=== PATIENT | male | born 1955 | race American Indian/Alaskan Native ===

== ENCOUNTER 2018-08-16 19:42 | Inpatient (IN) | payer OTHER ==
--- NOTE | 2018-08-16 20:07 | Emergency Department Report ---
Blank Doc - Documentation Documentation: This is a 62-year-old male that presents with cough and SOB. HX of COPD and C HF. Denies any CP. Also has some generalized weakness. This initial assessment/diagnostic orders/clinical plan/treatment(s) is/are subject to change based on patient's health status, clinical progression and re- assessment by fellow clinical providers in the ED. Further treatment and workup at subsequent clinical providers discretion. Patient/guardians urged not to elope from the ED as their condition may be serious if not clinically assessed and managed. Initial orders include: 1- Patient sent to MAIN ED for further evaluation and treatment 2- labs 3- EKG 4- CXR
[2018-08-16 20:26] LABS: Basophils % (Auto) 0.9 % (0.0-1.8); Eosinophils # (Auto) 0.1 K/mm3 (0.0-0.4); Eosinophils % (Auto) 1.5 % (0.0-4.3); Hematocrit 34.7 % (35.5-45.6); Hemoglobin 11.3 gm/dl (11.8-15.2); Lymphocytes # (Auto) 1.2 K/mm3 (1.2-5.4); Lymphocytes % (Auto) 31.5 % (13.4-35.0); Mean Corpuscular HGB Conc 32 % (32-34); Mean Corpuscular Volume 78 fl (84-94); Monocytes # (Auto) 0.4 K/mm3 (0.0-0.8); Monocytes % (Auto) 9.4 % (0.0-7.3); Platelet Count 254 K/mm3 (140-440); Red Blood Count 4.45 M/mm3 (3.65-5.03)
[2018-08-16 20:30] LABS: Red Cell Distribution Width 23.5 % (13.2-15.2)
[2018-08-16 20:44] LABS: BUN/Creatinine Ratio 12; Blood Urea Nitrogen 23 mg/dL (9-20); Calcium 8.9 mg/dL (8.4-10.2); Hemolysis Index 0; INR 1.06 (0.87-1.13)
[2018-08-16 20:45] LABS: Partial Thromboplastin Time 27.1 Sec. (24.2-36.6)
--- NOTE | 2018-08-16 22:04 | XRay Report ---
PROCEDURE: XR CHEST ROUTINE 2V TECHNIQUE: PA and lateral chest radiographs were obtained. HISTORY: Dyspnea COMPARISONS: None. FINDINGS: Heart: Normal. Mediastinum/Vessels: Normal. Lungs/Pleural space: The lungs are well expanded. There are infiltrates at the left lung base. There are small bilateral pleural effusions. There is no pneumothorax.. Bony thorax: No acute osseous abnormality. IMPRESSION: The heart size is normal.. The lungs are well expanded. There are infiltrates at the lef t lung base. There are small bilateral pleural effusions. There is no pneumothorax.. This document is electronically signed by Faustino Can MD., Aug 16 2018 10:02:39 PM ET
--- NOTE | 2018-08-16 22:27 | Emergency Department Report ---
ED Shortness of Breath HPI - General Chief Complaint: Dyspnea/Respdistress Stated Complaint: SHORTNESS OF BREATH/COUGH Time Seen by Provider: 08/16/18 20:05 Source: patient, family Mode of arrival: Ambulatory Limitations: No Limitations - History of Present Illness Initial Comments: pt is a 62-year-old male that presents emergency room with complaints of chest pain, shortness of breath and cough 3 days. Patient states he has not seen his primary care. Patient states he has a past medical history of COPD, CHF, CAD and hypertension. Patient states that his symptoms are worsening. Patient states his shortness of breath is worse with exertion and better with rest. Patient states his chest pain is a 4 out of 10 and it is better with rest and worse with exertion. Patient states the chest pain is in the center of his chest and is nonradiating. MD Complaint: shortness of breath, cough, chest pain -: days(s) (3 days) Severity: moderate Pain Scale: 4 Quality: dull Consistency: intermittent Improves With: rest Worsens With: exertion Known History Of: COPD, congestive heart failure Associated Symptoms: chest pain, pain with inspiration, cough Treatments Prior to Arrival: none - Related Data Allergies Allergy/AdvReac Type Severity Reaction Status Date / Time No Known Allergies Allergy Verified 08/17/18 01:16 ED Review of Systems ROS: Stated complaint: SHORTNESS OF BREATH/COUGH Other details as noted in HPI Constitutional: denies: chills, fever Eyes: denies: eye pain, eye discharge, vision change ENT: denies: ear pain, throat pain Respiratory: cough, shortness of breath, SOB with exertion, SOB at rest. denies: wheezing Cardiovascular: chest pain. denies: palpitations Endocrine: no symptoms reported Gastrointestinal: denies: abdominal pain, nausea, diarrhea Genitourinary: denies: urgency, dysuria Musculoskeletal: denies: back pain, joint swelling, arthralgia Skin: denies: rash, lesions Neurological: denies: headache, weakness, paresthesias Psychiatric: denies: anxiety, depression Hematological/Lymphatic: denies: easy bleeding, easy bruising ED Past Medical Hx - Past Medical History Previous Medical History?: Yes Hx Hypertension: Yes Hx Heart Attack/AMI: Yes Hx Congestive Heart Failure: Yes Hx COPD: Yes Additional medical history: CAD - Surgical History Past Surgical History?: No - Family History Family history: no significant - Social History Smoking Status: Former Smoker Substance Use Type: None ED Physical Exam - General Limitations: No Limitations General appearance: alert, in no apparent distress - Head Head exam: Present: atraumatic, normocephalic - Eye Eye exam: Present: normal appearance - ENT ENT exam: Present: mucous membranes moist - Neck Neck exam: Present: normal inspection - Respiratory Respiratory exam: Present: normal lung sounds bilaterally. Absent: respiratory distress - Cardiovascular Cardiovascular Exam: Present: regular rate, normal rhythm. Absent: systolic murmur, diastolic murmur, rubs, gallop - GI/Abdominal GI/Abdominal exam: Present: soft, normal bowel sounds - Rectal Rectal exam: Present: deferred - Extremities Exam Extremities exam: Present: normal inspection - Back Exam Back exam: Present: normal inspection - Neurological Exam Neurological exam: Present: alert, oriented X3 - Psychiatric Psychiatric exam: Present: normal affect, normal mood - Skin Skin exam: Present: warm, dry, intact, normal color. Absent: rash ED Course Vital Signs 08/16/18 08/16/18 08/17/18 19:47 22:46 01:51 Temperature 98.2 F Pulse Rate 87 78 87 Respiratory 18 22 15 Rate Blood Pressure 172/109 Blood Pressure 168/96 179/109 [Right] O2 Sat by Pulse 99 96 97 Oximetry 08/17/18 02:25 Temperature Pulse Rate 86 Respiratory Rate Blood Pressure 176/109 Blood Pressure [Right] O2 Sat by Pulse Oximetry - Reevaluation(s) Reevaluation #1: Discussed all results with patient. Patient agrees with plan of care and admission. Patient was admitted to the hospitalist service. 08/16/18 23:23 Family bedside and discussed plan of care of family. Family agrees with plan of care and admission. 08/17/18 0:1:30 - Consultations Consultation #1: Hospitalist consulted for admission. Hospitalist to admit patient. Hospitalist to assume care patient. Dr Simmons to see patient 08/16/18 23:23 ED Medical Decision Making - Lab Data Result diagrams: 08/16/18 20:12 08/16/18 20:12 - EKG Data -: EKG Interpreted by Md EKG shows normal: sinus rhythm, axis, intervals, QRS complexes, ST-T waves Rate: normal - EKG Data Interpretation: LVH - Radiology Data Radiology results: report reviewed, image reviewed PROCEDURE: XR CHEST ROUTINE 2V TECHNIQUE: PA and lateral chest radiographs were obtained. HISTORY: Dyspnea COMPARISONS: None. FINDINGS: Heart: Normal. Mediastinum/Vessels: Normal. Lungs/Pleural space: The lungs are well expanded. There are infiltrates at the left lung base. There are small bilateral pleural effusions. There is no pneumothorax.. Bony thorax: No acute osseous abnormality. IMPRESSION: The heart size is normal.. The lungs are well expanded. There are infiltrates at the left lung base. There are small bilateral pleural effusions. There is no pneumothorax.. - Medical Decision Making Patient is a 62-year-old mellitus or sore chest pain, shortness of breath and dyspnea on exertion and cough. Patient found a CHF exacerbation and IV Lasix. Chest x-ray shows infiltrates. Labs unremarkable except for elevated BNP. Troponin negative. EKG shows LVH and no acute changes. - Differential Diagnosis ACS. Chest pain. Shortness of breath. WEST. CHF Critical Care Time: Yes Critical care attestation.: If time is entered above; I have spent that time in minutes in the direct care of this critically ill patient, excluding procedure time. Critical Care Time: 45 minutes ED Disposition Clinical Impression: SOB (shortness of breath), WEST (dyspnea on exertion), Cough, Renal insufficiency CHF exacerbation Qualifiers: Heart failure type: unspecified Qualified Code(s): I50.9 - Heart failure, unspecified Chest pain Qualifiers: Chest pain type: unspecified Qualified Code(s): R07.9 - Chest pain, unspecified Disposition: 09 OP ADMIT IP TO THIS HOSP Is pt being admited?: Yes Does the pt Need Aspirin: No Condition: Critical Instructions: Chest Pain (ED) Referrals: AUBRIE YANG MD [Primary Care Provider] - 3-5 Days Time of Disposition: 23:24
[2018-08-16] MEDS ORDERED: LASIX IV ONE (23:24)
[2018-08-17] MEDS ORDERED: ZOFRAN IV PRN (01:11)
[2018-08-17] MEDS ORDERED: SODIUM CHLORIDE FLUSH SYRINGE 10 ML IV PRN (01:11)
[2018-08-17] MEDS ORDERED: TYLENOL PO PRN (01:11)
[2018-08-17] MEDS ORDERED: ZITHROMAX 500 MG in NACL 0.9% 250ML 250 ML IV SCH (01:15)
[2018-08-17] MEDS ORDERED: APRESOLINE PO SCH (01:18)
[2018-08-17] MEDS ORDERED: APRESOLINE IV PRN (01:19)
[2018-08-17] MEDS ORDERED: LASIX ONE (01:32)
[2018-08-17] MEDS: COREG PO SCH ×3 (02:25→21:14)
[2018-08-17] MEDS: NORVASC PO SCH ×2 (02:25→09:25)
[2018-08-17] MEDS: ROCEPHIN/NS 2 GM/100 ML 2 GM/100 ML BAG IV SCH ×2 (02:25→21:13)
[2018-08-17 02:40] LABS: Bilirubin,Urine NEG (Negative); Blood,Urine SM (Negative); Color,Urine Yellow (Yellow); Mucus,Urine FEW /HPF; Urobilinogen,Urine < 2.0 mg/dL (<2.0)
[2018-08-17] MEDS ORDERED: ZOFRAN IV ONE (03:14)
[2018-08-17] MEDS ORDERED: PROVENTIL IH PRN (04:14)
--- NOTE | 2018-08-17 04:17 | History and Physical Report ---
History of Present Illness Date of examination: 08/17/18 Date of admission: 08/17/18 01:11 Chief complaint: Shortness of breath History of present illness: Patient is a 62 year old -[place] male with history of COPD and CHF who presented to the ED on account of 1 week history of shortness of breath on mild exertion. He has associated dry cough, pleuritic chest pain, chills without fever, nausea, vomiting and generalized weakness. He denies palpitations, diaphoresis, sore throat, runny nose, leg swelling, orthopnea or PND. No headaches, lightheadedness, syncope or loss of consciousness. No abdominal pain, bleeding from any orifice, constipation, diarrhea, dysuria or frequency. Of note, patient admits to being compliant with his medications. Past History Past Medical History: atrial fib, COPD, heart failure, hypertension Past Surgical History: Other (ablation) Social history: smoking (patient smokes cigarettes for 50 years but quit about a year ago. He abused alcohol for 50 years but quit a year ago. He denies illicit drug use) Family history: other (reviewed and noncontributory) Medications and Allergies Allergies Allergy/AdvReac Type Severity Reaction Status Date / Time No Known Allergies Allergy Verified 08/17/18 01:16 Home Medications Medication Instructions Recorded Confirmed Last Taken Type Amiodarone 200 mg PO DAILY 08/17/18 08/17/18 Unknown History Carvedilol 3.125 mg PO BID 08/17/18 08/17/18 Unknown History Eliquis 2.5 mg PO BID 08/17/18 08/17/18 Unknown History ISOSORBIDE MONOnitrate 120 mg PO DAILY 08/17/18 08/17/18 Unknown History hydrALAZINE 50 mg PO TID 08/17/18 08/17/18 Unknown History Active Meds: Active Medications Acetaminophen (Tylenol) 650 mg PO Q4H PRN PRN Reason: Pain MILD(1-3)/Fever >100.5/SHAH Acetaminophen/Hydrocodone Bitart ([place] 5/325) 1 each PO Q6H PRN PRN Reason: Pain, Moderate (4-6) Amlodipine Besylate (Norvasc) 10 mg PO QDAY [facility] Last Admin: 08/17/18 02:25 Dose: 10 mg Documented by: Carvedilol (Coreg) 12.5 mg PO BID [facility] Last Admin: 08/17/18 02:25 Dose: 12.5 mg Documented by: Docusate Sodium (Colace) 100 mg PO BID [facility] Furosemide (Lasix) 40 mg IV 0600,1800 HEATHER Hydralazine HCl (Apresoline) 75 mg PO TID [facility] Last Admin: 08/17/18 01:34 Dose: 75 mg Documented by: Hydralazine HCl (Apresoline) 20 mg IV Q4HR PRN PRN Reason: Blood Pressure Ceftriaxone Sodium (Rocephin/Ns 2 Gm/100 Ml) 2 gm in 100 mls @ 200 mls/hr IV Q24HR@2200 HEATHER; Protocol Last Admin: 08/17/18 02:25 Dose: 200 mls/hr Documented by: Azithromycin 500 mg/ Sodium (Chloride) 250 mls @ 250 mls/hr IV Q24HR HEATHER Ondansetron HCl (Zofran) 4 mg IV Q8H PRN PRN Reason: Nausea And Vomiting Sodium Chloride (Sodium Chloride Flush Syringe 10 Ml) 10 ml IV BID [facility] Sodium Chloride (Sodium Chloride Flush Syringe 10 Ml) 10 ml IV PRN PRN PRN Reason: LINE FLUSH Review of Systems All systems: negative (except as documented in the HPI, all other systems were reviewed and negative) Exam - Constitutional Vitals: Temp Pulse Resp BP Pulse Ox 98.2 F 70 24 113/66 97 08/16/18 19:47 08/17/18 03:49 08/17/18 03:49 08/17/18 03:49 08/17/18 03:49 General appearance: Present: no acute distress, well-nourished - EENT Eyes: Present: PERRL, EOM intact ENT: hearing intact, clear oral mucosa - Neck Neck: Present: supple, normal ROM - Respiratory Respiratory effort: normal Respiratory: bilateral: rales (bibasilar crackles) - Cardiovascular Rhythm: regular Heart Sounds: Present: S1 & S2 - Extremities Extremities: No edema Peripheral Pulses: within normal limits - Abdominal General gastrointestinal: Present: soft, non-tender, non-distended, normal bowel sounds Male genitourinary: Present: deferred - Integumentary Integumentary: Present: clear, warm, dry - Musculoskeletal Musculoskeletal: gait normal, strength equal bilaterally - Psychiatric Psychiatric: appropriate mood/affect, intact judgment & insight - Neurologic Neurologic: CNII-XII intact, moves all extremities Results - Labs CBC & Chem 7: 08/16/18 20:12 08/16/18 20:12 Labs: Laboratory Last Values WBC 3.9 K/mm3 (4.5-11.0) L 08/16/18 20:12 RBC 4.45 M/mm3 (3.65-5.03) 08/16/18 20:12 Hgb 11.3 gm/dl (11.8-15.2) L 08/16/18 20:12 Hct 34.7 % (35.5-45.6) L 08/16/18 20:12 MCV 78 fl (84-94) L 08/16/18 20:12 MCH 25 pg (28-32) L 08/16/18 20:12 MCHC 32 % (32-34) 08/16/18 20:12 RDW 23.5 % (13.2-15.2) H 08/16/18 20:12 Plt Count 254 K/mm3 (140-440) 08/16/18 20:12 Lymph % (Auto) 31.5 % (13.4-35.0) 08/16/18 20:12 [place] % (Auto) 9.4 % (0.0-7.3) H 08/16/18 20:12 Eos % (Auto) 1.5 % (0.0-4.3) 08/16/18 20:12 Baso % (Auto) 0.9 % (0.0-1.8) 08/16/18 20:12 Lymph # 1.2 K/mm3 (1.2-5.4) 08/16/18 20:12 [place] # 0.4 K/mm3 (0.0-0.8) 08/16/18 20:12 Eos # 0.1 K/mm3 (0.0-0.4) 08/16/18 20:12 Baso # 0.0 K/mm3 (0.0-0.1) 08/16/18 20:12 Seg Neutrophils % 56.7 % (40.0-70.0) 08/16/18 20:12 Seg Neutrophils # 2.2 K/mm3 (1.8-7.7) 08/16/18 20:12 PT 14.5 Sec. (12.2-14.9) 08/16/18 20:12 INR 1.06 (0.87-1.13) 08/16/18 20:12 APTT 27.1 Sec. (24.2-36.6) 08/16/18 20:12 Sodium 138 mmol/L (137-145) 08/16/18 20:12 Potassium 4.3 mmol/L (3.6-5.0) 08/16/18 20:12 Chloride 104.5 mmol/L (98-107) 08/16/18 20:12 Carbon Dioxide 24 mmol/L (22-30) 08/16/18 20:12 Anion Gap 14 mmol/L 08/16/18 20:12 BUN 23 mg/dL (9-20) H 08/16/18 20:12 Creatinine 1.9 mg/dL (0.8-1.5) H 08/16/18 20:12 Estimated GFR 36 ml/min 08/16/18 20:12 BUN/Creatinine Ratio 12 % 08/16/18 20:12 Glucose 100 mg/dL (75-100) 08/16/18 20:12 Calcium 8.9 mg/dL (8.4-10.2) 08/16/18 20:12 Troponin T < 0.010 ng/mL (0.00-0.029) 08/17/18 02:15 NT-Pro-B Natriuret Pep 81289 pg/mL (0-900) H 08/16/18 20:30 Urine Color Yellow (Yellow) 08/17/18 02:32 Urine Turbidity Clear (Clear) 08/17/18 02:32 Urine pH 6.0 (5.0-7.0) 08/17/18 02:32 Ur Specific [place] 1.011 (1.003-1.030) 08/17/18 02:32 Urine Protein 100 mg/dl mg/dL (Negative) 08/17/18 02:32 Urine Glucose (UA) Neg mg/dL (Negative) 08/17/18 02:32 Urine Ketones Neg mg/dL (Negative) 08/17/18 02:32 Urine Blood Sm (Negative) 08/17/18 02:32 Urine Nitrite Neg (Negative) 08/17/18 02:32 Urine Bilirubin Neg (Negative) 08/17/18 02:32 Urine Urobilinogen < 2.0 mg/dL (<2.0) 08/17/18 02:32 Ur Leukocyte Esterase Neg (Negative) 08/17/18 02:32 Urine WBC (Auto) 1.0 /HPF (0.0-6.0) 08/17/18 02:32 Urine RBC (Auto) 2.0 /HPF (0.0-6.0) 08/17/18 02:32 Urine Mucus Few /HPF 08/17/18 02:32 Assessment and Plan Assessment and plan: Acute on chronic CHF exacerbation -EF unknown -On CHF protocol -Echocardiogram to assess EF and valvular function Pneumonia -Chest x-ray showed infiltrates left lower lung base -On IV antibiotics -Blood cultures pending Hypertensive urgency -On antihypertensives, will adjust as needed ARF -Probably cardiorenal -On IV diuretic, will monitor creatinine level History of atrial fibrillation -Status post ablation -Heart rate controlled -We'll continue home medications including anticoagulation History of COPD -No acute exacerbation -On nebulizer breathing treatments DVT prophylaxis with heparin Disposition: For discharge when medically stable Time spent: 38 minutes
[2018-08-17] MEDS: LASIX IV SCH ×3 (05:56→18:31)
[2018-08-17] MEDS: NORCO 5/325 PO PRN ×3 (08:30→18:31)
[2018-08-17] MEDS: COLACE PO SCH ×2 (09:25→21:14)
[2018-08-17] MEDS: SODIUM CHLORIDE FLUSH SYRINGE 10 ML IV SCH ×2 (09:26→21:15)
[2018-08-17] MEDS: ZITHROMAX 500 MG in NACL 0.9% 250ML 250 ML IV SCH (13:39)
--- NOTE | 2018-08-17 14:16 | Progress Note ---
Assessment and Plan Assessment and plan: Patient is a 62 yo man with a history of hypertension, afib on eliquis, chf, copd and tobacco use who presents to [facility] ED with sob. * 2v CXR IMPRESSION: The heart size is normal.. The lungs are well expanded. There are infiltrates at the left lung base. There are small bilateral pleural effusions. There is no pneumothorax.. * 2D ECHO showed severe 4 chamber dilated cardiomyopathy, est EF 20-25%, moder ate concentric LVH, moderate to severe MR, severe TR, mild phtn, RVSP estimated at 28 mmhg, left pleural effusion, no significant pericardial effusion. Acute on chronic CHF exacerbation -EF unknown -On CHF protocol -consult Cardiology Pneumonia, LLL -Chest x-ray showed infiltrates left lower lung base -On IV antibiotics -Blood cultures pending Hypertensive urgency -On antihypertensives, will adjust as needed ARF -Probably cardiorenal -On IV diuretic, will monitor creatinine level History of atrial fibrillation -Status post ablation -Heart rate controlled -We'll continue home medications including anticoagulation History of COPD -No acute exacerbation -On nebulizer breathing treatments DVT prophylaxis with heparin Disposition: continue inpatient car, For discharge when medically stable History Interval history: Patient was seen and examined. Follow-up on current diagnosis of CHF. No Overnight events reported to me. Patient denies any chest pain, nausea/vomiting or severe headaches. Imaging, nursing note, chart, labs and old chart reviewed. Discussed with patient. Hospitalist Physical - Physical exam Narrative exam: Gen: thin frial, chronically disable, NAD, Awake, Alert, Orientated x 3, initially missed year HEENT: NCAT, EOMI, PERRL, OP Clear Neck: supple, no adenopathy, no thyromegaly, no JVD CVS/Heart: RRR, normal S1S2, pulses present bilaterally Chest/Lungs: diminished, Symmetrical chest expansion, good air entry bilaterally GI/Abdomen: soft, NTND, good bowel sounds, no guarding or rebound /Bladder: no suprapubic tenderness, no CVA or paraspinal tenderness Extermity/Skin: no leg edema, no obvious rash MSK: FROM x 4 Neuro: CN 2-12 grossly intact, no new focal deficits Psych: calm - Constitutional Vitals: Temp Pulse Resp BP Pulse Ox 97.9 F 72 18 122/81 100 08/17/18 12:28 08/17/18 12:28 08/17/18 12:28 08/17/18 12:28 08/17/18 12:28 General appearance: Present: no acute distress, well-nourished Results - Labs CBC & Chem 7: 08/16/18 20:12 08/16/18 20:12 Labs: Laboratory Last Values WBC 3.9 K/mm3 (4.5-11.0) L 08/16/18 20:12 RBC 4.45 M/mm3 (3.65-5.03) 08/16/18 20:12 Hgb 11.3 gm/dl (11.8-15.2) L 08/16/18 20:12 Hct 34.7 % (35.5-45.6) L 08/16/18 20:12 MCV 78 fl (84-94) L 08/16/18 20:12 MCH 25 pg (28-32) L 08/16/18 20:12 MCHC 32 % (32-34) 08/16/18 20:12 RDW 23.5 % (13.2-15.2) H 08/16/18 20:12 Plt Count 254 K/mm3 (140-440) 08/16/18 20:12 Lymph % (Auto) 31.5 % (13.4-35.0) 08/16/18 20:12 [place] % (Auto) 9.4 % (0.0-7.3) H 08/16/18 20:12 Eos % (Auto) 1.5 % (0.0-4.3) 08/16/18 20:12 Baso % (Auto) 0.9 % (0.0-1.8) 08/16/18 20:12 Lymph # 1.2 K/mm3 (1.2-5.4) 08/16/18 20:12 [place] # 0.4 K/mm3 (0.0-0.8) 08/16/18 20:12 Eos # 0.1 K/mm3 (0.0-0.4) 08/16/18 20:12 Baso # 0.0 K/mm3 (0.0-0.1) 08/16/18 20:12 Seg Neutrophils % 56.7 % (40.0-70.0) 08/16/18 20:12 Seg Neutrophils # 2.2 K/mm3 (1.8-7.7) 08/16/18 20:12 PT 14.5 Sec. (12.2-14.9) 08/16/18 20:12 INR 1.06 (0.87-1.13) 08/16/18 20:12 APTT 27.1 Sec. (24.2-36.6) 08/16/18 20:12 Sodium 138 mmol/L (137-145) 08/16/18 20:12 Potassium 4.3 mmol/L (3.6-5.0) 08/16/18 20:12 Chloride 104.5 mmol/L (98-107) 08/16/18 20:12 Carbon Dioxide 24 mmol/L (22-30) 08/16/18 20:12 Anion Gap 14 mmol/L 08/16/18 20:12 BUN 23 mg/dL (9-20) H 08/16/18 20:12 Creatinine 1.9 mg/dL (0.8-1.5) H 08/16/18 20:12 Estimated GFR 36 ml/min 08/16/18 20:12 BUN/Creatinine Ratio 12 % 08/16/18 20:12 Glucose 100 mg/dL (75-100) 08/16/18 20:12 Calcium 8.9 mg/dL (8.4-10.2) 08/16/18 20:12 Troponin T < 0.010 ng/mL (0.00-0.029) 08/17/18 04:53 NT-Pro-B Natriuret Pep 80712 pg/mL (0-900) H 08/16/18 20:30 Urine Color Yellow (Yellow) 08/17/18 02:32 Urine Turbidity Clear (Clear) 08/17/18 02:32 Urine pH 6.0 (5.0-7.0) 08/17/18 02:32 Ur Specific [place] 1.011 (1.003-1.030) 08/17/18 02:32 Urine Protein 100 mg/dl mg/dL (Negative) 08/17/18 02:32 Urine Glucose (UA) Neg mg/dL (Negative) 08/17/18 02:32 Urine Ketones Neg mg/dL (Negative) 08/17/18 02:32 Urine Blood Sm (Negative) 08/17/18 02:32 Urine Nitrite Neg (Negative) 08/17/18 02:32 Urine Bilirubin Neg (Negative) 08/17/18 02:32 Urine Urobilinogen < 2.0 mg/dL (<2.0) 08/17/18 02:32 Ur Leukocyte Esterase Neg (Negative) 08/17/18 02:32 Urine WBC (Auto) 1.0 /HPF (0.0-6.0) 08/17/18 02:32 Urine RBC (Auto) 2.0 /HPF (0.0-6.0) 08/17/18 02:32 Urine Mucus Few /HPF 08/17/18 02:32 Active Medications - Current Medications Current Medications: Generic Name Dose Route Start Last Admin Trade Name Freq PRN Reason Stop Dose Admin Acetaminophen 650 mg 08/17/18 01:11 Tylenol PO Q4H PRN Pain MILD(1-3)/Fever >100.5/SHAH Acetaminophen/Hydrocodone Bitart 1 each 08/17/18 01:11 08/17/18 13:35 [place] 5/325 PO 1 each Q6H PRN Administration Pain, Moderate (4-6) Albuterol 2.5 mg 08/17/18 04:14 Proventil IH Q4HRT PRN Shortness Of Breath Amlodipine Besylate 10 mg 08/17/18 01:17 08/17/18 09:25 Norvasc PO 10 mg QDAY HEATHER Administration Carvedilol 12.5 mg 08/17/18 02:00 08/17/18 09:26 Coreg PO 12.5 mg BID HEATHER Administration Docusate Sodium 100 mg 08/17/18 10:00 08/17/18 09:25 Colace PO 100 mg BID HEATHER Administration Furosemide 40 mg 08/17/18 06:00 08/17/18 09:25 Lasix IV 40 mg 0600,1800 HEATHER Administration Hydralazine HCl 20 mg 08/17/18 01:19 Apresoline IV Q4HR PRN Blood Pressure Ceftriaxone Sodium 2 gm in 100 mls @ 200 mls/hr 08/17/18 02:00 08/17/18 02:25 Rocephin/Ns 2 Gm/100 Ml IV 200 mls/hr Q24HR@2200 HEATHER Administration Protocol Azithromycin 500 mg/ Sodium 250 mls @ 250 mls/hr 08/17/18 10:00 08/17/18 13:39 Chloride IV 250 mls/hr Q24HR HEATHER Administration Ondansetron HCl 4 mg 08/17/18 01:11 Zofran IV Q8H PRN Nausea And Vomiting Sodium Chloride 10 ml 08/17/18 10:00 08/17/18 09:26 Sodium Chloride Flush Syringe 10 Ml IV 10 ml BID HEATHER Administration Sodium Chloride 10 ml 08/17/18 01:11 Sodium Chloride Flush Syringe 10 Ml IV PRN PRN LINE FLUSH
[2018-08-18 05:52] LABS: Basophils % (Auto) 0.6 % (0.0-1.8); Eosinophils # (Auto) 0.1 K/mm3 (0.0-0.4); Eosinophils % (Auto) 1.4 % (0.0-4.3); Hematocrit 29.8 % (35.5-45.6); Hemoglobin 9.8 gm/dl (11.8-15.2); Lymphocytes # (Auto) 1.6 K/mm3 (1.2-5.4); Lymphocytes % (Auto) 35.2 % (13.4-35.0); Mean Corpuscular HGB Conc 33 % (32-34); Mean Corpuscular Volume 78 fl (84-94); Monocytes # (Auto) 0.5 K/mm3 (0.0-0.8); Monocytes % (Auto) 9.8 % (0.0-7.3); Platelet Count 223 K/mm3 (140-440); Red Blood Count 3.85 M/mm3 (3.65-5.03)
[2018-08-18] MEDS: LASIX IV SCH (06:00)
[2018-08-18 06:04] LABS: Red Cell Distribution Width 23.3 % (13.2-15.2)
[2018-08-18 06:11] LABS: Alanine Aminotransferase 9 units/L (7-56); Albumin 2.8 g/dL (3.9-5); BUN/Creatinine Ratio 10; Blood Urea Nitrogen 26 mg/dL (9-20); Hemolysis Index 4
[2018-08-18 06:31] LABS: Bilirubin,Direct < 0.2 mg/dL (0-0.2)
--- NOTE | 2018-08-18 09:34 | Consultation ---
History of Present Illness Consult date: 08/18/18 Consult reason: congestive heart failure History of present illness: Patient is a 62 year old male who presented with complaints of shortness of breath, coughs and generalized weakness. A chest x-ray reports mild interstitial edema, left lower lobe infiltrates with bilateral plueral effusions. Initial labs shows acute renal failure, creatinine of 1.9 and an elevated proBNP. Further cardiac evaluation with an echocardiogram revealed severe 4 chamber dilated cardiomyopathy with a decreased left ventricular systolic function 20- 25%. Cardiac consultation was requested for further evaluation. Patient is a poor historian. Records from [facility] shows patient has chronic systolic heart failure. [facility] but has not been done due to non-compliance with cardiac followups. Patient also has a history of typical atrial flutter and has undergone an atrial flutter ablation less than a year ago. Due to history of chronic renal failure he is on low dose eliquis therapy. He had a creatinine of 1.65 on discharge from [facility] 10/2017. Past History Past Medical History: atrial fib, COPD, heart failure, hypertension Past Surgical History: Other (ablation) Social history: smoking (patient smokes cigarettes for 50 years but quit about a year ago. He abused alcohol for 50 years but quit a year ago. He denies illicit drug use) Family history: other (reviewed and noncontributory) Medications and Allergies Allergies Allergy/AdvReac Type Severity Reaction Status Date / Time No Known Allergies Allergy Verified 08/17/18 01:16 Home Medications Medication Instructions Recorded Confirmed Last Taken Type Amiodarone 200 mg PO DAILY 08/17/18 08/17/18 Unknown History Carvedilol 3.125 mg PO BID 08/17/18 08/17/18 Unknown History Eliquis 2.5 mg PO BID 08/17/18 08/17/18 Unknown History ISOSORBIDE MONOnitrate 120 mg PO DAILY 08/17/18 08/17/18 Unknown History hydrALAZINE 50 mg PO TID 08/17/18 08/17/18 Unknown History Active Meds: Active Medications Acetaminophen (Tylenol) 650 mg PO Q4H PRN PRN Reason: Pain MILD(1-3)/Fever >100.5/SHAH Acetaminophen/Hydrocodone Bitart ([place] 5/325) 1 each PO Q6H PRN PRN Reason: Pain, Moderate (4-6) Last Admin: 08/17/18 18:31 Dose: 1 each Documented by: Albuterol (Proventil) 2.5 mg IH Q4HRT PRN PRN Reason: Shortness Of Breath Amlodipine Besylate (Norvasc) 10 mg PO QDAY [facility] Last Admin: 08/17/18 09:25 Dose: 10 mg Documented by: Carvedilol (Coreg) 12.5 mg PO BID [facility] Last Admin: 08/17/18 21:14 Dose: 12.5 mg Documented by: Docusate Sodium (Colace) 100 mg PO BID [facility] Last Admin: 08/17/18 21:14 Dose: 100 mg Documented by: Furosemide (Lasix) 40 mg IV 0600,1800 [facility] Last Admin: 08/18/18 06:00 Dose: 40 mg Documented by: Hydralazine HCl (Apresoline) 20 mg IV Q4HR PRN PRN Reason: Blood Pressure Ceftriaxone Sodium (Rocephin/Ns 2 Gm/100 Ml) 2 gm in 100 mls @ 200 mls/hr IV Q24HR@2200 [facility]; Protocol Last Admin: 08/17/18 21:13 Dose: 200 mls/hr Documented by: Azithromycin 500 mg/ Sodium (Chloride) 250 mls @ 250 mls/hr IV Q24HR [facility] Last Admin: 08/17/18 13:39 Dose: 250 mls/hr Documented by: Ondansetron HCl (Zofran) 4 mg IV Q8H PRN PRN Reason: Nausea And Vomiting Sodium Chloride (Sodium Chloride Flush Syringe 10 Ml) 10 ml IV BID [facility] Last Admin: 08/17/18 21:15 Dose: 10 ml Documented by: Sodium Chloride (Sodium Chloride Flush Syringe 10 Ml) 10 ml IV PRN PRN PRN Reason: LINE FLUSH Physical Examination Vital Signs Temp Pulse Resp BP Pulse Ox 98.2 F 87 18 172/109 99 08/16/18 19:47 08/16/18 19:47 08/16/18 19:47 08/16/18 19:47 08/16/18 19:47 General appearance: no acute distress HEENT: Positive: PERRL Neck: Positive: trachea midline Cardiac: Positive: Reg Rate and Rhythm Lungs: Positive: Decreased Breath Sounds Neuro: Positive: Grossly Intact Extremities: Absent: edema Results 08/18/18 05:13 08/18/18 05:13 Cardiac Enzymes 08/18/18 Range/Units 05:13 AST 14 (5-40) units/L CBC 08/18/18 Range/Units 05:13 WBC 4.7 (4.5-11.0) K/mm3 RBC 3.85 (3.65-5.03) M/mm3 Hgb 9.8 L (11.8-15.2) gm/dl Hct 29.8 L (35.5-45.6) % Plt Count 223 (140-440) K/mm3 Lymph # 1.6 (1.2-5.4) K/mm3 [place] # 0.5 (0.0-0.8) K/mm3 Eos # 0.1 (0.0-0.4) K/mm3 Baso # 0.0 (0.0-0.1) K/mm3 Comprehensive Metabolic Panel 08/18/18 Range/Units 05:13 Sodium 137 (137-145) mmol/L Potassium 4.2 (3.6-5.0) mmol/L Chloride 105.5 (98-107) mmol/L Carbon Dioxide 21 L (22-30) mmol/L BUN 26 H (9-20) mg/dL Creatinine 2.6 H (0.8-1.5) mg/dL Glucose 104 H (75-100) mg/dL Calcium 8.0 L (8.4-10.2) mg/dL Direct Bilirubin < 0.2 (0-0.2) mg/dL Indirect Bilirubin 0.2 mg/dL AST 14 (5-40) units/L ALT 9 (7-56) units/L Alkaline Phosphatase 87 (35-129) units/L Total Protein 6.9 (6.3-8.2) g/dL Albumin 2.8 L (3.9-5) g/dL Assessment and Plan Pneumonia Pleural effusion Chronic systolic heart failure EF 20-25% by echo this admission Hx of Aflutter s/p ablation 10/2017 previously recommended for low dose eliquis therapy Chronic renal failure COPD Recommend: Medical management for chronic systolic heart failure. Nephrology consultation for evaluation and management of renal failure. Otherwise, conservative cardiac management.
[2018-08-18] MEDS: ZITHROMAX 500 MG in NACL 0.9% 250ML 250 ML IV SCH (11:25)
[2018-08-18] MEDS: NORVASC PO SCH (11:26)
[2018-08-18] MEDS: SODIUM CHLORIDE FLUSH SYRINGE 10 ML IV SCH ×2 (11:26→21:39)
[2018-08-18] MEDS: COREG PO SCH ×2 (11:27→21:38)
[2018-08-18] MEDS: COLACE PO SCH ×2 (11:27→21:38)
--- NOTE | 2018-08-18 12:27 | Progress Note ---
Assessment and Plan Assessment and plan: Patient is a 62 yo man with a history of hypertension, p. hypertension, group 2 and 3, Valvular Heart Disease (moderate MR and moderate TR), p. afib on eliquis, chf, copd and tobacco dependency who presents to [facility] ED with sob. * 2v CXR IMPRESSION: The heart size is normal.. The lungs are well expanded. There are infiltrates at the left lung base. There are small bilateral pleural effusions. There is no pneumothorax.. * 2D ECHO showed severe 4 chamber dilated cardiomyopathy, est EF 20-25%, moderate concentric LVH, moderate to severe MR, severe TR, mild phtn, RVSP estimated at 28 mmhg, left pleural effusion, no significant pericardial effusion. Acute on chronic exacerbation of systolic heart failure: treated with iv lasix, now evolumic and dry,so stop iv lasix ARF/CKD 3 suspected but no baseline in EMR, atn+vasomotor nephropathy, worsening: consulted Nephrology, ordered renal u/s Pneumonia, LLL: continue iv abx, blood cultures pending Hypertensive urgency-On antihypertensives, will adjust as needed History of p. atrial fibrillation, Status post ablation-Heart rate controlled, Cardiology consulted, input noted History of COPD -No acute exacerbation-On nebulizer breathing treatments Tobacco dependency: counselor dormitory on stopping DVT prophylaxis with heparin Disposition: continue inpatient care, once renal function stabilize then discharge, renal u/s, am labs, Nephrology consulted History Interval history: Patient was seen and examined. Follow-up on current diagnosis of CHF. No Overnight events reported to me. Patient denies any chest pain, nausea/vomiting or severe headaches. Imaging, nursing note, chart, labs and old chart reviewed. Discussed with patient. Hospitalist Physical - Physical exam Narrative exam: Gen: thin frial, chronically disable, NAD, Awake, Alert, Orientated x 3, i nitially missed year HEENT: NCAT, EOMI, PERRL, OP Clear Neck: supple, no adenopathy, no thyromegaly, no JVD CVS/Heart: RRR, normal S1S2, pulses present bilaterally Chest/Lungs: diminished and coarse left base, Symmetrical chest expansion, good air entry bilaterally GI/Abdomen: soft, NTND, good bowel sounds, no guarding or rebound /Bladder: no suprapubic tenderness, no CVA or paraspinal tenderness Extermity/Skin: no leg edema, no obvious rash MSK: FROM x 4 Neuro: CN 2-12 grossly intact, no new focal deficits Psych: calm - Constitutional Vitals: Temp Pulse Resp BP Pulse Ox 98.4 F 69 18 121/77 97 08/18/18 08:53 08/18/18 11:27 08/18/18 08:54 08/18/18 11:27 08/18/18 08:54 General appearance: Present: no acute distress Results - Labs CBC & Chem 7: 08/18/18 05:13 08/18/18 05:13 Labs: Laboratory Last Values WBC 4.7 K/mm3 (4.5-11.0) 08/18/18 05:13 RBC 3.85 M/mm3 (3.65-5.03) 08/18/18 05:13 Hgb 9.8 gm/dl (11.8-15.2) L 08/18/18 05:13 Hct 29.8 % (35.5-45.6) L 08/18/18 05:13 MCV 78 fl (84-94) L 08/18/18 05:13 MCH 25 pg (28-32) L 08/18/18 05:13 MCHC 33 % (32-34) 08/18/18 05:13 RDW 23.3 % (13.2-15.2) H 08/18/18 05:13 Plt Count 223 K/mm3 (140-440) 08/18/18 05:13 Lymph % (Auto) 35.2 % (13.4-35.0) H 08/18/18 05:13 [place] % (Auto) 9.8 % (0.0-7.3) H 08/18/18 05:13 Eos % (Auto) 1.4 % (0.0-4.3) 08/18/18 05:13 Baso % (Auto) 0.6 % (0.0-1.8) 08/18/18 05:13 Lymph # 1.6 K/mm3 (1.2-5.4) 08/18/18 05:13 [place] # 0.5 K/mm3 (0.0-0.8) 08/18/18 05:13 Eos # 0.1 K/mm3 (0.0-0.4) 08/18/18 05:13 Baso # 0.0 K/mm3 (0.0-0.1) 08/18/18 05:13 Seg Neutrophils % 53.0 % (40.0-70.0) 08/18/18 05:13 Seg Neutrophils # 2.5 K/mm3 (1.8-7.7) 08/18/18 05:13 PT 14.5 Sec. (12.2-14.9) 08/16/18 20:12 INR 1.06 (0.87-1.13) 08/16/18 20:12 APTT 27.1 Sec. (24.2-36.6) 08/16/18 20:12 Sodium 137 mmol/L (137-145) 08/18/18 05:13 Potassium 4.2 mmol/L (3.6-5.0) 08/18/18 05:13 Chloride 105.5 mmol/L (98-107) 08/18/18 05:13 Carbon Dioxide 21 mmol/L (22-30) L 08/18/18 05:13 Anion Gap 15 mmol/L 08/18/18 05:13 BUN 26 mg/dL (9-20) H 08/18/18 05:13 Creatinine 2.6 mg/dL (0.8-1.5) H 08/18/18 05:13 Estimated GFR 30 ml/min 08/18/18 05:13 BUN/Creatinine Ratio 10 % 08/18/18 05:13 Glucose 104 mg/dL (75-100) H 08/18/18 05:13 Calcium 8.0 mg/dL (8.4-10.2) L 08/18/18 05:13 Magnesium 1.90 mg/dL (1.7-2.3) 08/18/18 05:13 Total Bilirubin 0.40 mg/dL (0.1-1.2) 08/18/18 05:13 Direct Bilirubin < 0.2 mg/dL (0-0.2) 08/18/18 05:13 Indirect Bilirubin 0.2 mg/dL 08/18/18 05:13 AST 14 units/L (5-40) 08/18/18 05:13 ALT 9 units/L (7-56) 08/18/18 05:13 Alkaline Phosphatase 87 units/L (35-129) 08/18/18 05:13 Troponin T < 0.010 ng/mL (0.00-0.029) 08/17/18 04:53 NT-Pro-B Natriuret Pep 25588 pg/mL (0-900) H 08/16/18 20:30 Total Protein 6.9 g/dL (6.3-8.2) 08/18/18 05:13 Albumin 2.8 g/dL (3.9-5) L 08/18/18 05:13 Albumin/Globulin Ratio 0.7 % 08/18/18 05:13 Urine Color Yellow (Yellow) 08/17/18 02:32 Urine Turbidity Clear (Clear) 08/17/18 02:32 Urine pH 6.0 (5.0-7.0) 08/17/18 02:32 Ur Specific [place] 1.011 (1.003-1.030) 08/17/18 02:32 Urine Protein 100 mg/dl mg/dL (Negative) 08/17/18 02:32 Urine Glucose (UA) Neg mg/dL (Negative) 08/17/18 02:32 Urine Ketones Neg mg/dL (Negative) 08/17/18 02:32 Urine Blood Sm (Negative) 08/17/18 02:32 Urine Nitrite Neg (Negative) 08/17/18 02:32 Urine Bilirubin Neg (Negative) 08/17/18 02:32 Urine Urobilinogen < 2.0 mg/dL (<2.0) 08/17/18 02:32 Ur Leukocyte Esterase Neg (Negative) 08/17/18 02:32 Urine WBC (Auto) 1.0 /HPF (0.0-6.0) 08/17/18 02:32 Urine RBC (Auto) 2.0 /HPF (0.0-6.0) 08/17/18 02:32 Urine Mucus Few /HPF 08/17/18 02:32 Active Medications - Current Medications Current Medications: Generic Name Dose Route Start Last Admin Trade Name Freq PRN Reason Stop Dose Admin Acetaminophen 650 mg 08/17/18 01:11 Tylenol PO Q4H PRN Pain MILD(1-3)/Fever >100.5/SHAH Acetaminophen/Hydrocodone Bitart 1 each 08/17/18 01:11 08/17/18 18:31 [place] 5/325 PO 1 each Q6H PRN Administration Pain, Moderate (4-6) Albuterol 2.5 mg 08/17/18 04:14 Proventil IH Q4HRT PRN Shortness Of Breath Amiodarone HCl 200 mg 08/19/18 11:00 Cordarone PO QDAY [facility] Amlodipine Besylate 10 mg 08/17/18 01:17 08/18/18 11:26 Norvasc PO 10 mg QDAY [facility] Administration Carvedilol 12.5 mg 08/17/18 02:00 08/18/18 11:27 Coreg PO 12.5 mg BID [facility] Administration Docusate Sodium 100 mg 08/17/18 10:00 08/18/18 11:27 Colace PO 100 mg BID [facility] Administration Hydralazine HCl 20 mg 08/17/18 01:19 Apresoline IV Q4HR PRN Blood Pressure Hydralazine HCl 25 mg 08/18/18 22:00 Apresoline PO Q12HR [facility] Ceftriaxone Sodium 2 gm in 100 mls @ 200 mls/hr 08/17/18 02:00 08/17/18 21:13 Rocephin/Ns 2 Gm/100 Ml IV 200 mls/hr Q24HR@2200 [facility] Administration Protocol Azithromycin 500 mg/ Sodium 250 mls @ 250 mls/hr 08/17/18 10:00 08/18/18 11:25 Chloride IV 250 mls/hr Q24HR [facility] Administration Ondansetron HCl 4 mg 08/17/18 01:11 Zofran IV Q8H PRN Nausea And Vomiting Sodium Chloride 10 ml 08/17/18 10:00 08/18/18 11:26 Sodium Chloride Flush Syringe 10 Ml IV 10 ml BID [facility] Administration Sodium Chloride 10 ml 08/17/18 01:11 Sodium Chloride Flush Syringe 10 Ml IV PRN PRN LINE FLUSH
[2018-08-18] MEDS: HEPARIN SUB-Q SCH ×2 (15:02→21:42)
--- NOTE | 2018-08-18 16:02 | Consultation ---
History of Present Illness - History of Present Illness Thank you for the consultation ! Patient was evaluated today My assessment and plan are as follows; Renal failure patient with multiple risk factors for chronic kidney disease cur rently admitted with congestive heart failure Current creatinine is around 1.9 patient is at risk with diuresis, Will need follow-up in the renal function will need further workup of renal failure Congestive heart failure acute exacerbation needs judicious hydration Hypertension accelerated requires better control and follow-up We'll check for proteinuria, and workup for renal failure Patient adequately counseled and educated regarding multiple renal related issues We will continue to follow and make recommendations from renal standpoint. Thank you for the consultation Author: Edilberto Jon M.D. [facility], [address] [place] [address] Tel; [phone] Source of information: From patient History of present illness Patient is a 62-year-old male who has been admitted here with shortness of breath and cough that started approximately 3 days ago, patient has prior history of COPD congestive heart failure coronary artery disease as well as hypertension Noted to have uncontrolled hypertension upon admission creatinine was 1.9 with a BUN of 23 potassium was 4.3 with bicarbonate of 24 He was admitted with diagnosis of congestive heart failure exacerbation Consultation was placed for management of renal failure Past medical history: Reviewed Current medication: Reviewed Social history: Reviewed Family history: Reviewed Review of system positive for worsening shortness of breath of one-week duration All other review of system negative noted from the chart Physical examination Vitals: Reviewed General: No acute distress HEENT: Oral mucosa moist no pallor or icterus Neck: Supple without any JVD thyromegaly or nodular mass Chest: lateral basilar crackles Heart: Regular rate and rhythm S1-S2 heard no S3-S4 Abdomen: Soft nontender, bowel sounds present no renal bruit no suprapubic masses no CVA tenderness noted Extremity: 1+edema dry skin no peripheral cyanosis Endocrine: Thyroid not enlarged Psychiatric: No agitation and aggression noted Musculoskeletal: No joint effusion noted Labs and x-rays: Reviewed from this admission Past History Past Medical History: atrial fib, COPD, heart failure, hypertension Past Surgical History: Other (ablation) Social history: smoking (patient smokes cigarettes for 50 years but quit about a year ago. He abused alcohol for 50 years but quit a year ago. He denies illici t drug use) Family history: other (reviewed and noncontributory) Medications and Allergies Allergies Allergy/AdvReac Type Severity Reaction Status Date / Time No Known Allergies Allergy Verified 08/17/18 01:16 Home Medications Medication Instructions Recorded Confirmed Last Taken Type Amiodarone 200 mg PO DAILY 08/17/18 08/17/18 Unknown History Eliquis 2.5 mg PO BID 08/17/18 08/17/18 Unknown History ISOSORBIDE MONOnitrate 120 mg PO DAILY 08/17/18 08/17/18 Unknown History Carvedilol [Coreg] 12.5 mg PO BID #60 tablet 08/23/18 Unknown Rx hydrALAZINE [Apresoline TAB] 25 mg PO Q12HR #60 tablet 08/23/18 Unknown Rx Active Meds: Active Medications Acetaminophen (Tylenol) 650 mg PO Q4H PRN PRN Reason: Pain MILD(1-3)/Fever >100.5/SHAH Acetaminophen/Hydrocodone Bitart ([place] 5/325) 1 each PO Q6H PRN PRN Reason: Pain, Moderate (4-6) Last Admin: 08/17/18 18:31 Dose: 1 each Documented by: Albuterol (Proventil) 2.5 mg IH Q4HRT PRN PRN Reason: Shortness Of Breath Amiodarone HCl (Cordarone) 200 mg PO QDAY [facility] Amlodipine Besylate (Norvasc) 10 mg PO QDAY [facility] Last Admin: 08/18/18 11:26 Dose: 10 mg Documented by: Carvedilol (Coreg) 12.5 mg PO BID [facility] Last Admin: 08/18/18 11:27 Dose: 12.5 mg Documented by: Docusate Sodium (Colace) 100 mg PO BID [facility] Last Admin: 08/18/18 11:27 Dose: 100 mg Documented by: Heparin Sodium (Porcine) (Heparin) 5,000 unit SUB-Q Q12HR [facility] Last Admin: 08/18/18 15:02 Dose: 5,000 unit Documented by: Hydralazine HCl (Apresoline) 20 mg IV Q4HR PRN PRN Reason: Blood Pressure Hydralazine HCl (Apresoline) 25 mg PO Q12HR [facility] Ceftriaxone Sodium (Rocephin/Ns 2 Gm/100 Ml) 2 gm in 100 mls @ 200 mls/hr IV Q24HR@2200 [facility]; Protocol Last Admin: 08/17/18 21:13 Dose: 200 mls/hr Documented by: Azithromycin 500 mg/ Sodium (Chloride) 250 mls @ 250 mls/hr IV Q24HR [facility] Last Admin: 08/18/18 11:25 Dose: 250 mls/hr Documented by: Ondansetron HCl (Zofran) 4 mg IV Q8H PRN PRN Reason: Nausea And Vomiting Sodium Chloride (Sodium Chloride Flush Syringe 10 Ml) 10 ml IV BID [facility] Last Admin: 08/18/18 11:26 Dose: 10 ml Documented by: Sodium Chloride (Sodium Chloride Flush Syringe 10 Ml) 10 ml IV PRN PRN PRN Reason: LINE FLUSH Exam - Vital Signs Vital signs: Vital Signs Temp Pulse Resp BP Pulse Ox 98.2 F 87 18 172/109 99 08/16/18 19:47 08/16/18 19:47 08/16/18 19:47 08/16/18 19:47 08/16/18 19:47 Results - Lab Results 08/20/18 04:54 08/23/18 05:10 Most recent lab results Calcium 8.0 mg/dL (8.4-10.2) L 08/18/18 05:13 Magnesium 1.90 mg/dL (1.7-2.3) 08/18/18 05:13
[2018-08-18] MEDS: APRESOLINE PO SCH (21:37)
[2018-08-18] MEDS: ROCEPHIN/NS 2 GM/100 ML 2 GM/100 ML BAG IV SCH (21:38)
[2018-08-19 00:28] LABS: Bilirubin,Urine NEG (Negative); Blood,Urine NEG (Negative); Color,Urine Yellow (Yellow); Urobilinogen,Urine < 2.0 mg/dL (<2.0)
[2018-08-19 00:36] LABS: Creatinine,Urine 276.7 mg/dL (0.1-20.0)
--- NOTE | 2018-08-19 01:11 | Progress Note ---
Assessment and Plan 1) Cardiomyopathy, Ischemic vs non-ischemic (Tachy mediated vs alcohol). TSH and free T4 are normal. HIV is normal. ESTELLA and Sjogren positive Patient was supposed to have a cardiac PET as outpatient in [place] but never had the test done 2) Chronic systolic heart failure Patient does not appear to be volume overloaded on exam Patient is warm on exam 4) Paroxysmal nonvalvular atrial flutter s/p CTI ablation 5) Valvular Heart Disease (moderate MR and moderate TR) 6) Pulm HTN by echo 2/2 most likely group 2 and group 3. 7) Chronic renal failure 8) COPD CXR showing LLL infiltrates 9) Non-compliance 10) Poor historian Continue current management with afterload reduction Hold IV diuresis as patient does not appear hypervolemic by physical exam. Continue to monitor renal function closely Outpatient ischemic cardiac evaluation as originally planned will be rescheduled upon discharge Overall prognosis is poor secondary to profound non-compliance Subjective Date of service: 08/19/18 Interval history: No acute events. Resting comfortably. No chest pain or SOB. Objective Vital Signs Temp Pulse Pulse Resp BP BP Pulse Ox 08/18/18 21:38 77 123/77 08/18/18 21:37 77 123/77 08/18/18 20:00 71 08/18/18 19:48 98.4 F 75 18 123/77 97 08/18/18 16:30 97.7 F 65 18 120/81 98 08/18/18 14:58 64 104/74 08/18/18 13:29 67 18 91/63 96 08/18/18 13:28 98.1 F 08/18/18 12:00 74 08/18/18 11:27 69 121/77 08/18/18 11:26 69 121/77 08/18/18 08:54 69 18 121/77 97 08/18/18 08:53 98.4 F 08/18/18 04:44 98.3 F 78 16 127/85 96 08/18/18 04:00 66 75 18 - Physical Examination HEENT: Positive: PERRL Neck: Positive: trachea midline Neuro: Positive: Grossly Intact Extremities: Absent: edema - Labs and Meds Cardiac Enzymes 08/18/18 Range/Units 05:13 AST 14 (5-40) units/L CBC 08/18/18 Range/Units 05:13 WBC 4.7 (4.5-11.0) K/mm3 RBC 3.85 (3.65-5.03) M/mm3 Hgb 9.8 L (11.8-15.2) gm/dl Hct 29.8 L (35.5-45.6) % Plt Count 223 (140-440) K/mm3 Lymph # 1.6 (1.2-5.4) K/mm3 [place] # 0.5 (0.0-0.8) K/mm3 Eos # 0.1 (0.0-0.4) K/mm3 Baso # 0.0 (0.0-0.1) K/mm3 Comprehensive Metabolic Panel 08/18/18 Range/Units 05:13 Sodium 137 (137-145) mmol/L Potassium 4.2 (3.6-5.0) mmol/L Chloride 105.5 (98-107) mmol/L Carbon Dioxide 21 L (22-30) mmol/L BUN 26 H (9-20) mg/dL Creatinine 2.6 H (0.8-1.5) mg/dL Glucose 104 H (75-100) mg/dL Calcium 8.0 L (8.4-10.2) mg/dL Direct Bilirubin < 0.2 (0-0.2) mg/dL Indirect Bilirubin 0.2 mg/dL AST 14 (5-40) units/L ALT 9 (7-56) units/L Alkaline Phosphatase 87 (35-129) units/L Total Protein 6.9 (6.3-8.2) g/dL Albumin 2.8 L (3.9-5) g/dL
--- NOTE | 2018-08-19 05:29 | Ultrasound Report ---
PROCEDURE: US RENAL BILAT TECHNIQUE: Real-time sonography in multiple planes of the kidneys, ureters and urinary bladder was p erformed with image documentation. HISTORY: renal failure COMPARISONS: None . FINDINGS: RIGHT kidney: Cortex is echogenic. There are nonobstructing stones. There is no hydronephrosis or mas s.. Length: 10.1 cm. LEFT kidney: Cortex is echogenic.There are nonobstructing stones. There is no hydronephrosis or mass. . Length: 10.2 cm. There is a 7 mm cyst in the upper pole. Bladder: Normal. No distention or wall thickening. There is a small amount of ascites. IMPRESSION: The kidneys are echogenic consistent with chronic medical renal disease. There are nonobstructing kidney stones. There is no hydronephrosis or mass. There is a small cyst in the left kidney. This document is electronically signed by Faustino Can MD., Aug 19 2018 05:27:28 AM ET
[2018-08-19 07:49] LABS: Hematocrit 31.3 % (35.5-45.6); Hemoglobin 10.1 gm/dl (11.8-15.2); Mean Corpuscular HGB Conc 32 % (32-34); Mean Corpuscular Volume 78 fl (84-94); Platelet Count 234 K/mm3 (140-440); Red Blood Count 4.03 M/mm3 (3.65-5.03)
[2018-08-19 08:01] LABS: Calcium 8.2 mg/dL (8.4-10.2)
[2018-08-19 08:15] LABS: Red Cell Distribution Width 23.1 % (13.2-15.2)
[2018-08-19] MEDS: ZITHROMAX 500 MG in NACL 0.9% 250ML 250 ML IV SCH (09:17)
[2018-08-19] MEDS: APRESOLINE PO SCH ×2 (09:17→21:40)
[2018-08-19] MEDS: NORVASC PO SCH (09:18)
[2018-08-19] MEDS: COLACE PO SCH ×2 (09:18→21:40)
[2018-08-19] MEDS: HEPARIN SUB-Q SCH ×2 (09:18→21:39)
[2018-08-19] MEDS: COREG PO SCH ×2 (09:18→21:40)
[2018-08-19] MEDS: SODIUM CHLORIDE FLUSH SYRINGE 10 ML IV SCH ×2 (09:18→21:41)
[2018-08-19] MEDS: CORDARONE PO SCH (10:27)
--- NOTE | 2018-08-19 11:47 | Progress Note ---
Assessment and Plan Assessment and plan: Acute on chronic systolic heart failure. Resolving. Cardiology following. Hold diuretics per cardiology for now. Cardiomyopathy. TSH and free T4 are normal. HIV normal.? Ischemic versus nonischemic. Outpatient ischemic cardiac evaluation will be scheduled upon discharge per cardiology. Etiology may be tachycardia mediated versus EtOH. ESTELLA and Sjogren positive. Paroxysmal non-valvular atrial flutter. Patient is status post ablation. Valvular heart disease. Moderate MR and moderate TR. Pulmonary hypertension. Chronic kidney disease. IV Lasix has been held. COPD. Left lower lobe pneumonia. Continue IV antibiotics History Interval history: No new issues overnight. Hospitalist Physical - Constitutional Vitals: Temp Pulse Resp BP Pulse Ox 98.3 F 73 18 130/83 99 08/19/18 08:36 08/19/18 09:17 08/19/18 08:34 08/19/18 09:17 08/19/18 08:34 General appearance: Present: no acute distress - EENT Eyes: Present: PERRL, EOM intact ENT: hearing intact, clear oral mucosa, dentition normal - Neck Neck: Present: supple, normal ROM - Respiratory Respiratory effort: normal Respiratory: bilateral: CTA - Cardiovascular Rhythm: regular Heart Sounds: Present: S1 & S2. Absent: gallop, rub - Extremities Extremities: no ischemia, No edema, Full ROM - Abdominal General gastrointestinal: soft, non-tender, non-distended, normal bowel sounds - Integumentary Integumentary: Present: clear, warm, dry - Neurologic Neurologic: CNII-XII intact, moves all extremities Results - Labs CBC & Chem 7: 08/19/18 07:23 08/19/18 07:23 Labs: Laboratory Last Values WBC 4.1 K/mm3 (4.5-11.0) L 08/19/18 07:23 RBC 4.03 M/mm3 (3.65-5.03) 08/19/18 07:23 Hgb 10.1 gm/dl (11.8-15.2) L 08/19/18 07:23 Hct 31.3 % (35.5-45.6) L 08/19/18 07:23 MCV 78 fl (84-94) L 08/19/18 07:23 MCH 25 pg (28-32) L 08/19/18 07:23 MCHC 32 % (32-34) 08/19/18 07:23 RDW 23.1 % (13.2-15.2) H 08/19/18 07:23 Plt Count 234 K/mm3 (140-440) 08/19/18 07:23 Lymph % (Auto) 35.2 % (13.4-35.0) H 08/18/18 05:13 [place] % (Auto) 9.8 % (0.0-7.3) H 08/18/18 05:13 Eos % (Auto) 1.4 % (0.0-4.3) 08/18/18 05:13 Baso % (Auto) 0.6 % (0.0-1.8) 08/18/18 05:13 Lymph # 1.6 K/mm3 (1.2-5.4) 08/18/18 05:13 [place] # 0.5 K/mm3 (0.0-0.8) 08/18/18 05:13 Eos # 0.1 K/mm3 (0.0-0.4) 08/18/18 05:13 Baso # 0.0 K/mm3 (0.0-0.1) 08/18/18 05:13 Seg Neutrophils % 53.0 % (40.0-70.0) 08/18/18 05:13 Seg Neutrophils # 2.5 K/mm3 (1.8-7.7) 08/18/18 05:13 PT 14.5 Sec. (12.2-14.9) 08/16/18 20:12 INR 1.06 (0.87-1.13) 08/16/18 20:12 APTT 27.1 Sec. (24.2-36.6) 08/16/18 20:12 Sodium 136 mmol/L (137-145) L 08/19/18 07:23 Potassium 4.2 mmol/L (3.6-5.0) 08/19/18 07:23 Chloride 102.3 mmol/L (98-107) 08/19/18 07:23 Carbon Dioxide 22 mmol/L (22-30) 08/19/18 07:23 Anion Gap 16 mmol/L 08/19/18 07:23 BUN 28 mg/dL (9-20) H 08/19/18 07:23 Creatinine 2.6 mg/dL (0.8-1.5) H 08/19/18 07:23 Estimated GFR 30 ml/min 08/19/18 07:23 BUN/Creatinine Ratio 11 % 08/19/18 07:23 Glucose 87 mg/dL (75-100) 08/19/18 07:23 Osmolality 300 Mosm/kg 08/18/18 16:47 Uric Acid 8.8 mg/dL (3.5-7.6) H 08/18/18 16:47 Calcium 8.2 mg/dL (8.4-10.2) L 08/19/18 07:23 Magnesium 1.90 mg/dL (1.7-2.3) 08/18/18 05:13 Total Bilirubin 0.40 mg/dL (0.1-1.2) 08/18/18 05:13 Direct Bilirubin < 0.2 mg/dL (0-0.2) 08/18/18 05:13 Indirect Bilirubin 0.2 mg/dL 08/18/18 05:13 AST 14 units/L (5-40) 08/18/18 05:13 ALT 9 units/L (7-56) 08/18/18 05:13 Alkaline Phosphatase 87 units/L (35-129) 08/18/18 05:13 Troponin T < 0.010 ng/mL (0.00-0.029) 08/17/18 04:53 NT-Pro-B Natriuret Pep 56969 pg/mL (0-900) H 08/16/18 20:30 Total Protein 6.9 g/dL (6.3-8.2) 08/18/18 05:13 Albumin 2.8 g/dL (3.9-5) L 08/18/18 05:13 Albumin/Globulin Ratio 0.7 % 08/18/18 05:13 Urine Color Yellow (Yellow) 08/18/18 Unknown Urine Turbidity Slightly-cloudy (Clear) 08/18/18 Unknown Urine pH 5.0 (5.0-7.0) 08/18/18 Unknown Ur Specific [place] 1.018 (1.003-1.030) 08/18/18 Unknown Urine Protein 100 mg/dl mg/dL (Negative) 08/18/18 Unknown Urine Glucose (UA) Neg mg/dL (Negative) 08/18/18 Unknown Urine Ketones Neg mg/dL (Negative) 08/18/18 Unknown Urine Blood Neg (Negative) 08/18/18 Unknown Urine Nitrite Neg (Negative) 08/18/18 Unknown Urine Bilirubin Neg (Negative) 08/18/18 Unknown Urine Urobilinogen < 2.0 mg/dL (<2.0) 08/18/18 Unknown Ur Leukocyte Esterase Neg (Negative) 08/18/18 Unknown Urine WBC (Auto) 2.0 /HPF (0.0-6.0) 08/18/18 Unknown Urine RBC (Auto) 4.0 /HPF (0.0-6.0) 08/18/18 Unknown Urine Mucus Few /HPF 08/17/18 02:32 Urine Creatinine 276.7 mg/dL (0.1-20.0) H 08/18/18 Unknown Urine Sodium 36 mmol/L 08/18/18 Unknown Urine Total Protein 266 mg/dL (5-11.8) H 08/18/18 Unknown Active Medications - Current Medications Current Medications: Generic Name Dose Route Start Last Admin Trade Name Freq PRN Reason Stop Dose Admin Acetaminophen 650 mg 08/17/18 01:11 Tylenol PO Q4H PRN Pain MILD(1-3)/Fever >100.5/SHAH Acetaminophen/Hydrocodone Bitart 1 each 08/17/18 01:11 08/17/18 18:[address] [place] 5/325 PO 1 each Q6H PRN Administration Pain, Moderate (4-6) Albuterol 2.5 mg 08/17/18 04:14 Proventil IH Q4HRT PRN Shortness Of Breath Amiodarone HCl 200 mg 08/19/18 11:00 08/19/18 10:27 Cordarone PO 200 mg QDAY HEATHER Administration Amlodipine Besylate 10 mg 08/17/18 01:17 08/19/18 09:18 Norvasc PO 10 mg QDAY HEATHER Administration Carvedilol 12.5 mg 08/17/18 02:00 08/19/18 09:18 Coreg PO 12.5 mg BID HEATHER Administration Docusate Sodium 100 mg 08/17/18 10:00 08/19/18 09:18 Colace PO 100 mg BID HEATHER Administration Heparin Sodium (Porcine) 5,000 unit 08/18/18 14:00 08/19/18 09:18 Heparin SUB-Q 5,000 unit Q12HR HEATHER Administration Hydralazine HCl 20 mg 08/17/18 01:19 Apresoline IV Q4HR PRN Blood Pressure Hydralazine HCl 25 mg 08/18/18 22:00 08/19/18 09:17 Apresoline PO 25 mg Q12HR HEATHER Administration Ceftriaxone Sodium 2 gm in 100 mls @ 200 mls/hr 08/17/18 02:00 08/18/18 21:38 Rocephin/Ns 2 Gm/100 Ml IV 200 mls/hr Q24HR@2200 HEATHER Administration Protocol Azithromycin 500 mg/ Sodium 250 mls @ 250 mls/hr 08/17/18 10:00 08/19/18 09:17 Chloride IV 250 mls/hr Q24HR HEATHER Administration Ondansetron HCl 4 mg 08/17/18 01:11 Zofran IV Q8H PRN Nausea And Vomiting Sodium Chloride 10 ml 08/17/18 10:00 08/19/18 09:18 Sodium Chloride Flush Syringe 10 Ml IV 10 ml BID HEATHER Administration Sodium Chloride 10 ml 08/17/18 01:11 Sodium Chloride Flush Syringe 10 Ml IV PRN PRN LINE FLUSH
--- NOTE | 2018-08-19 16:40 | Progress Note ---
Assessment and Plan - Patient Problems (1) Acute kidney failure Current Visit: Yes Status: Acute Plan to address problem: Acute kidney failure Baseline creatinine unknown current creatinine is 2.6 mg/DL Renal ultrasound echogenic kidneys nonobstructing stones without hydronephrosis Appears volume depleted on exam I reviewed urinalysis without hematuria some proteinuria Obtain serologies Cautious fluid hydration for now (2) Chronic systolic CHF (congestive heart failure) Current Visit: Yes Status: Acute Plan to address problem: Chronic systolic heart failure not in exacerbation Volume depleted no edema We'll give gentle hydration when next 24 hours and assess response of kidney function Monitor Pulmonary status (3) Proteinuria Current Visit: Yes Status: Acute Plan to address problem: Proteinuria We'll obtain serologies to exclude other possibilities Urine protein creatinine ratio 1 g/g (4) Hyponatremia Current Visit: Yes Status: Acute Plan to address problem: Hyponatremia in the setting of chronic CHF Continue to monitor mild Subjective Interval history: 62-year-old gentleman with history of congestive heart failure with reduced systolic function, dilated cardiomyopathy, atrial flutter admitted with wor sening renal function. He denies any nausea vomiting diarrhea admits to decreased fluid intake he is on any diuretics he denies taking any NSAIDs denies any orthopnea PND he denies any lower extremity edema denies any cough fever or chills denies any nausea or vomiting Objective - Vital Signs Vital signs: Vital Signs - 12hr 08/19/18 08/19/18 08/19/18 08:34 08:36 08:52 Temperature 98.3 F Pulse Rate 73 74 Respiratory 18 Rate Blood Pressure 130/83 O2 Sat by Pulse 99 Oximetry 08/19/18 08/19/18 08/19/18 09:17 11:50 11:53 Temperature 97.4 F L Pulse Rate 73 76 Respiratory 18 Rate Blood Pressure 130/83 115/84 O2 Sat by Pulse 99 Oximetry - General Appearance General appearance: well-developed, well-nourished EENT: ATNC, PERRL Neck: no JVD, JVD Respiratory: Present: Clear to Ascultation Cardiology: regular, S1S2 Gastrointestinal: normal, normoactive bowel sounds Integumentary: no rash Neurologic: CN 3-12 intact Musculoskeletal: deferred Psychiatric: mood/affect appropriate - Lab 08/19/18 07:23 08/19/18 07:23 Most recent lab results Calcium 8.2 mg/dL (8.4-10.2) L 08/19/18 07:23 Magnesium 1.90 mg/dL (1.7-2.3) 08/18/18 05:13 Urine Creatinine 276.7 mg/dL (0.1-20.0) H 08/18/18 Unknown Urine Sodium 36 mmol/L 08/18/18 Unknown Urine Total Protein 266 mg/dL (5-11.8) H 08/18/18 Unknown - Imaging Chest x-ray: image reviewed (I reviewed chest x-ray most clear lung lewis) Medications & Allergies - Medications Allergies/Adverse Reactions: Allergies No Known Allergies Allergy (Verified 08/17/18 01:16) Home Medications: Home Medications Medication Instructions Recorded Confirmed Last Taken Type Amiodarone 200 mg PO DAILY 08/17/18 08/17/18 Unknown History Carvedilol 3.125 mg PO BID 08/17/18 08/17/18 Unknown History Eliquis 2.5 mg PO BID 08/17/18 08/17/18 Unknown History ISOSORBIDE MONOnitrate 120 mg PO DAILY 08/17/18 08/17/18 Unknown History hydrALAZINE 50 mg PO TID 08/17/18 08/17/18 Unknown History Active Medications: Generic Name Dose Route Start Last Admin Trade Name Freq PRN Reason Stop Dose Admin Acetaminophen 650 mg 08/17/18 01:11 Tylenol PO Q4H PRN Pain MILD(1-3)/Fever >100.5/SHAH Acetaminophen/Hydrocodone Bitart 1 each 08/17/18 01:11 08/17/18 18:31 [place] 5/325 PO 1 each Q6H PRN Administration Pain, Moderate (4-6) Albuterol 2.5 mg 08/17/18 04:14 Proventil IH Q4HRT PRN Shortness Of Breath Amiodarone HCl 200 mg 08/19/18 11:00 08/19/18 10:27 Cordarone PO 200 mg QDAY HEATHER Administration Amlodipine Besylate 10 mg 08/17/18 01:17 08/19/18 09:18 Norvasc PO 10 mg QDAY HEATHER Administration Carvedilol 12.5 mg 08/17/18 02:00 08/19/18 09:18 Coreg PO 12.5 mg BID HEATHER Administration Docusate Sodium 100 mg 08/17/18 10:00 08/19/18 09:18 Colace PO 100 mg BID HEATHER Administration Heparin Sodium (Porcine) 5,000 unit 08/18/18 14:00 08/19/18 09:18 Heparin SUB-Q 5,000 unit Q12HR HEATHER Administration Hydralazine HCl 20 mg 08/17/18 01:19 Apresoline IV Q4HR PRN Blood Pressure Hydralazine HCl 25 mg 08/18/18 22:00 08/19/18 09:17 Apresoline PO 25 mg Q12HR HEATHER Administration Ceftriaxone Sodium 2 gm in 100 mls @ 200 mls/hr 08/17/18 02:00 08/18/18 21:38 Rocephin/Ns 2 Gm/100 Ml IV 200 mls/hr Q24HR@2200 HEATHER Administration Protocol Azithromycin 500 mg/ Sodium 250 mls @ 250 mls/hr 08/17/18 10:00 08/19/18 09:17 Chloride IV 250 mls/hr Q24HR HEATHER Administration Sodium Chloride 1,000 mls @ 100 mls/hr 08/19/18 17:00 Nacl 0.9% 1000 Ml IV DIRECT HEATHER Ondansetron HCl 4 mg 08/17/18 01:11 Zofran IV Q8H PRN Nausea And Vomiting Sodium Chloride 10 ml 08/17/18 10:00 08/19/18 09:18 Sodium Chloride Flush Syringe 10 Ml IV 10 ml BID HEATHER Administration Sodium Chloride 10 ml 08/17/18 01:11 Sodium Chloride Flush Syringe 10 Ml IV PRN PRN LINE FLUSH
[2018-08-19] MEDS: NACL 0.9% 1000 ML 1,000 ML IV SCH (17:10)
[2018-08-19] MEDS: ROCEPHIN/NS 2 GM/100 ML 2 GM/100 ML BAG IV SCH (21:41)
[2018-08-20 05:56] LABS: Basophils % (Auto) 0.7 % (0.0-1.8); Eosinophils # (Auto) 0.1 K/mm3 (0.0-0.4); Eosinophils % (Auto) 1.8 % (0.0-4.3); Hematocrit 31.4 % (35.5-45.6); Hemoglobin 10.2 gm/dl (11.8-15.2); Lymphocytes # (Auto) 1.6 K/mm3 (1.2-5.4); Lymphocytes % (Auto) 36.4 % (13.4-35.0); Mean Corpuscular HGB Conc 32 % (32-34); Mean Corpuscular Volume 77 fl (84-94); Monocytes # (Auto) 0.3 K/mm3 (0.0-0.8); Monocytes % (Auto) 7.9 % (0.0-7.3); Platelet Count 241 K/mm3 (140-440); Red Blood Count 4.07 M/mm3 (3.65-5.03)
[2018-08-20 06:02] LABS: Red Cell Distribution Width 23.1 % (13.2-15.2)
[2018-08-20 06:09] LABS: Calcium 8.2 mg/dL (8.4-10.2)
[2018-08-20] MEDS: NACL 0.9% 1000 ML 1,000 ML IV SCH (06:17)
--- NOTE | 2018-08-20 09:29 | Progress Note ---
Assessment and Plan 1) Cardiomyopathy, Ischemic vs non-ischemic (Tachy mediated vs alcohol). TSH and free T4 are normal. HIV is normal. ESTELLA and Sjogren positive Patient was supposed to have a cardiac PET as outpatient in [place] but never had the test done 2) Chronic systolic heart failure Patient does not appear to be volume overloaded on exam Patient is warm on exam 4) Paroxysmal nonvalvular atrial flutter s/p CTI ablation 5) Valvular Heart Disease (moderate MR and moderate TR) 6) Pulm HTN by echo 2/2 most likely group 2 and group 3. 7) Chronic renal failure 8) COPD CXR showing LLL infiltrates 9) Non-compliance 10) Poor historian Recommendations: Continue current management with afterload reduction Continue to hold IV diuresis as patient does not appear hypervolemic by physical exam. Continue to monitor renal function closely and hydrate judiciously. Outpatient ischemic cardiac evaluation as originally planned will be rescheduled upon discharge Overall prognosis is poor secondary to profound non-compliance Subjective Date of service: 08/20/18 Principal diagnosis: ARF Interval history: Patient denies chest pain or shortness of breath Tele is showing 4 beats NSVT Objective Vital Signs Temp Pulse Resp BP BP Pulse Ox 08/20/18 08:04 97.5 F L 67 18 128/81 97 08/20/18 04:12 97.5 F L 126/86 08/20/18 04:00 97.5 F L 62 126/86 96 08/20/18 00:00 74 08/19/18 23:13 98.2 F 68 14 97/63 97 08/19/18 21:40 75 103/73 08/19/18 20:00 97.6 F 71 103/73 98 08/19/18 17:01 97.8 F 08/19/18 17:00 72 18 99/71 98 08/19/18 16:00 67 08/19/18 11:53 97.4 F L 08/19/18 11:50 76 18 115/84 99 - Physical Examination HEENT: Positive: PERRL Neck: Positive: trachea midline Cardiac: Positive: Reg Rate and Rhythm Lungs: Positive: Normal Exam Neuro: Positive: Grossly Intact Extremities: Absent: edema - Labs and Meds CBC 08/20/18 Range/Units 04:54 WBC 4.4 L (4.5-11.0) K/mm3 RBC 4.07 (3.65-5.03) M/mm3 Hgb 10.2 L (11.8-15.2) gm/dl Hct 31.4 L (35.5-45.6) % Plt Count 241 (140-440) K/mm3 Lymph # 1.6 (1.2-5.4) K/mm3 [place] # 0.3 (0.0-0.8) K/mm3 Eos # 0.1 (0.0-0.4) K/mm3 Baso # 0.0 (0.0-0.1) K/mm3 Comprehensive Metabolic Panel 08/20/18 Range/Units 04:54 Sodium 132 L (137-145) mmol/L Potassium 4.7 (3.6-5.0) mmol/L Chloride 100.3 (98-107) mmol/L Carbon Dioxide 18 L (22-30) mmol/L BUN 34 H (9-20) mg/dL Creatinine 2.8 H (0.8-1.5) mg/dL Glucose 95 (75-100) mg/dL Calcium 8.2 L (8.4-10.2) mg/dL
[2018-08-20] MEDS: ZITHROMAX 500 MG in NACL 0.9% 250ML 250 ML IV SCH (10:30)
[2018-08-20] MEDS: CORDARONE PO SCH (10:30)
[2018-08-20] MEDS: HEPARIN SUB-Q SCH ×2 (10:30→21:40)
[2018-08-20] MEDS: COLACE PO SCH ×2 (10:31→21:41)
[2018-08-20] MEDS: NORVASC PO SCH (10:32)
[2018-08-20] MEDS: APRESOLINE PO SCH ×2 (10:32→21:40)
[2018-08-20] MEDS: COREG PO SCH ×2 (10:33→21:41)
[2018-08-20] MEDS: SODIUM CHLORIDE FLUSH SYRINGE 10 ML IV SCH ×2 (10:34→21:41)
--- NOTE | 2018-08-20 11:21 | Progress Note ---
Assessment and Plan Assessment and plan: Acute on chronic systolic heart failure. Resolving. Cardiology following. Hold diuretics per cardiology for now. Acute kidney injury. Baseline creatinine unknown current creatinine is 2.6 mg/DL Renal ultrasound echogenic kidneys nonobstructing stones without hydronephrosis Patient also with proteinuria. Nephrology following and obtained serologies to exclude other possibilities Cardiomyopathy. TSH and free T4 are normal. HIV normal.? Ischemic versus nonischemic. Outpatient ischemic cardiac evaluation will be scheduled upon discharge per cardiology. Etiology may be tachycardia mediated versus EtOH. ESTELLA and Sjogren positive. Paroxysmal non-valvular atrial flutter. Patient is status post ablation. Valvular heart disease. Moderate MR and moderate TR. Pulmonary hypertension. Chronic kidney disease. IV Lasix has been held. COPD. Left lower lobe pneumonia. Continue IV antibiotics History Interval history: No new issues overnight. Hospitalist Physical - Constitutional Vitals: Temp Pulse Resp BP Pulse Ox 97.5 F L 69 17 134/86 97 08/20/18 08:04 08/20/18 10:33 08/20/18 09:19 08/20/18 10:33 08/20/18 08:04 General appearance: Present: no acute distress - EENT Eyes: Present: PERRL, EOM intact ENT: hearing intact, clear oral mucosa, dentition normal - Neck Neck: Present: supple, normal ROM - Respiratory Respiratory effort: normal Respiratory: bilateral: CTA - Cardiovascular Rhythm: regular Heart Sounds: Present: S1 & S2. Absent: gallop, rub - Extremities Extremities: no ischemia, No edema, Full ROM - Abdominal General gastrointestinal: soft, non-tender, non-distended, normal bowel sounds - Integumentary Integumentary: Present: clear, warm, dry - Neurologic Neurologic: CNII-XII intact, moves all extremities Results - Labs CBC & Chem 7: 08/20/18 04:54 08/20/18 04:54 Labs: Laboratory Last Values WBC 4.4 K/mm3 (4.5-11.0) L 08/20/18 04:54 RBC 4.07 M/mm3 (3.65-5.03) 08/20/18 04:54 Hgb 10.2 gm/dl (11.8-15.2) L 08/20/18 04:54 Hct 31.4 % (35.5-45.6) L 08/20/18 04:54 MCV 77 fl (84-94) L 08/20/18 04:54 MCH 25 pg (28-32) L 08/20/18 04:54 MCHC 32 % (32-34) 08/20/18 04:54 RDW 23.1 % (13.2-15.2) H 08/20/18 04:54 Plt Count 241 K/mm3 (140-440) 08/20/18 04:54 Lymph % (Auto) 36.4 % (13.4-35.0) H 08/20/18 04:54 [place] % (Auto) 7.9 % (0.0-7.3) H 08/20/18 04:54 Eos % (Auto) 1.8 % (0.0-4.3) 08/20/18 04:54 Baso % (Auto) 0.7 % (0.0-1.8) 08/20/18 04:54 Lymph # 1.6 K/mm3 (1.2-5.4) 08/20/18 04:54 [place] # 0.3 K/mm3 (0.0-0.8) 08/20/18 04:54 Eos # 0.1 K/mm3 (0.0-0.4) 08/20/18 04:54 Baso # 0.0 K/mm3 (0.0-0.1) 08/20/18 04:54 Seg Neutrophils % 53.2 % (40.0-70.0) 08/20/18 04:54 Seg Neutrophils # 2.4 K/mm3 (1.8-7.7) 08/20/18 04:54 PT 14.5 Sec. (12.2-14.9) 08/16/18 20:12 INR 1.06 (0.87-1.13) 08/16/18 20:12 APTT 27.1 Sec. (24.2-36.6) 08/16/18 20:12 Sodium 132 mmol/L (137-145) L 08/20/18 04:54 Potassium 4.7 mmol/L (3.6-5.0) 08/20/18 04:54 Chloride 100.3 mmol/L (98-107) 08/20/18 04:54 Carbon Dioxide 18 mmol/L (22-30) L 08/20/18 04:54 Anion Gap 18 mmol/L 08/20/18 04:54 BUN 34 mg/dL (9-20) H 08/20/18 04:54 Creatinine 2.8 mg/dL (0.8-1.5) H 08/20/18 04:54 Estimated GFR 28 ml/min 08/20/18 04:54 BUN/Creatinine Ratio 12 % 08/20/18 04:54 Glucose 95 mg/dL (75-100) 08/20/18 04:54 Osmolality 300 Mosm/kg 08/18/18 16:47 Uric Acid 8.8 mg/dL (3.5-7.6) H 08/18/18 16:47 Calcium 8.2 mg/dL (8.4-10.2) L 08/20/18 04:54 Magnesium 1.90 mg/dL (1.7-2.3) 08/18/18 05:13 Total Bilirubin 0.40 mg/dL (0.1-1.2) 08/18/18 05:13 Direct Bilirubin < 0.2 mg/dL (0-0.2) 08/18/18 05:13 Indirect Bilirubin 0.2 mg/dL 08/18/18 05:13 AST 14 units/L (5-40) 08/18/18 05:13 ALT 9 units/L (7-56) 08/18/18 05:13 Alkaline Phosphatase 87 units/L (35-129) 08/18/18 05:13 Troponin T < 0.010 ng/mL (0.00-0.029) 08/17/18 04:53 NT-Pro-B Natriuret Pep 4951 pg/mL (0-900) H 08/20/18 04:54 Total Protein 6.9 g/dL (6.3-8.2) 08/18/18 05:13 Albumin 2.8 g/dL (3.9-5) L 08/18/18 05:13 Albumin/Globulin Ratio 0.7 % 08/18/18 05:13 Urine Color Yellow (Yellow) 08/18/18 Unknown Urine Turbidity Slightly-cloudy (Clear) 08/18/18 Unknown Urine pH 5.0 (5.0-7.0) 08/18/18 Unknown Ur Specific [place] 1.018 (1.003-1.030) 08/18/18 Unknown Urine Protein 100 mg/dl mg/dL (Negative) 08/18/18 Unknown Urine Glucose (UA) Neg mg/dL (Negative) 08/18/18 Unknown Urine Ketones Neg mg/dL (Negative) 08/18/18 Unknown Urine Blood Neg (Negative) 08/18/18 Unknown Urine Nitrite Neg (Negative) 08/18/18 Unknown Urine Bilirubin Neg (Negative) 08/18/18 Unknown Urine Urobilinogen < 2.0 mg/dL (<2.0) 08/18/18 Unknown Ur Leukocyte Esterase Neg (Negative) 08/18/18 Unknown Urine WBC (Auto) 2.0 /HPF (0.0-6.0) 08/18/18 Unknown Urine RBC (Auto) 4.0 /HPF (0.0-6.0) 08/18/18 Unknown Urine Mucus Few /HPF 08/17/18 02:32 Urine Creatinine 276.7 mg/dL (0.1-20.0) H 08/18/18 Unknown Urine Sodium 36 mmol/L 08/18/18 Unknown Urine Total Protein 266 mg/dL (5-11.8) H 08/18/18 Unknown Active Medications - Current Medications Current Medications: Generic Name Dose Route Start Last Admin Trade Name Freq PRN Reason Stop Dose Admin Acetaminophen 650 mg 08/17/18 01:11 Tylenol PO Q4H PRN Pain MILD(1-3)/Fever >100.5/SHAH Acetaminophen/Hydrocodone Bitart 1 each 08/17/18 01:11 08/17/18 18:31 [place] 5/325 PO 1 each Q6H PRN Administration Pain, Moderate (4-6) Albuterol 2.5 mg 08/17/18 04:14 Proventil IH Q4HRT PRN Shortness Of Breath Amiodarone HCl 200 mg 08/19/18 11:00 08/20/18 10:30 Cordarone PO 200 mg QDAY HEATHER Administration Amlodipine Besylate 10 mg 08/17/18 01:17 08/20/18 10:32 Norvasc PO 10 mg QDAY HEATHER Administration Carvedilol 12.5 mg 08/17/18 02:00 08/20/18 10:33 Coreg PO 12.5 mg BID HEATHER Administration Docusate Sodium 100 mg 08/17/18 10:00 08/20/18 10:31 Colace PO 100 mg BID HEATHER Administration Heparin Sodium (Porcine) 5,000 unit 08/18/18 14:00 08/20/18 10:30 Heparin SUB-Q 5,000 unit Q12HR HEATHER Administration Hydralazine HCl 20 mg 08/17/18 01:19 Apresoline IV Q4HR PRN Blood Pressure Hydralazine HCl 25 mg 08/18/18 22:00 08/20/18 10:32 Apresoline PO 25 mg Q12HR HEATHER Administration Ceftriaxone Sodium 2 gm in 100 mls @ 200 mls/hr 08/17/18 02:00 08/19/18 21:41 Rocephin/Ns 2 Gm/100 Ml IV 200 mls/hr Q24HR@2200 HEATHER Administration Protocol Azithromycin 500 mg/ Sodium 250 mls @ 250 mls/hr 08/17/18 10:00 08/20/18 10:30 Chloride IV 250 mls/hr Q24HR HEATHER Administration Sodium Chloride 1,000 mls @ 100 mls/hr 08/19/18 17:00 08/20/18 06:17 Nacl 0.9% 1000 Ml IV 100 mls/hr DIRECT HEATHER Administration Ondansetron HCl 4 mg 08/17/18 01:11 Zofran IV Q8H PRN Nausea And Vomiting Sodium Chloride 10 ml 08/17/18 10:00 08/20/18 10:34 Sodium Chloride Flush Syringe 10 Ml IV Not Given BID HEATHER Sodium Chloride 10 ml 08/17/18 01:11 Sodium Chloride Flush Syringe 10 Ml IV PRN PRN LINE FLUSH
[2018-08-20] MEDS: SODIUM BICARBONATE 150 MEQ in D5W 1,000 ML IV SCH (13:48)
[2018-08-20 14:20] LABS: Calcium 7.9 mg/dL (8.4-10.2)
--- NOTE | 2018-08-20 14:48 | Progress Note ---
Assessment and Plan - Patient Problems (1) Acute kidney failure Current Visit: Yes Status: Acute Plan to address problem: Acute kidney failure worsening Baseline creatinine unknown current creatinine is 2.8 mg/DL Renal ultrasound echogenic kidneys nonobstructing stones without hydronephrosis Appears volume depleted on exam I reviewed urinalysis without hematuria some proteinuria Obtain serologies History of ESTELLA and Sjorgen positive reduced urine output if bladder scan showed elevated postvoid residual place alvarez Cautious fluid hydration for now (2) Chronic systolic CHF (congestive heart failure) Current Visit: Yes Status: Acute Plan to address problem: Chronic systolic heart failure not in exacerbation Volume depleted no edema We'll give gentle hydration when next 24 hours and assess response of kidney function Monitor Pulmonary status (3) Proteinuria Current Visit: Yes Status: Acute Plan to address problem: Proteinuria We'll obtain serologies to exclude other possibilities Urine protein creatinine ratio 1 g/g (4) Hyponatremia Current Visit: Yes Status: Acute Plan to address problem: Hyponatremia in the setting of chronic CHF Continue to monitor Subjective Principal diagnosis: ARF Interval history: 62-year-old gentleman with history of congestive heart failure with reduced systolic function, dilated cardiomyopathy, atrial flutter admitted with worsening renal function. He denies any nausea vomiting diarrhea admits to decreased fluid intake he is on any diuretics he denies taking any NSAIDs denies any orthopnea PND he denies any lower extremity edema denies any cough fever or chills denies any nausea or vomiting Patient seen today Denies any shortness of breath denies any lower extremity edema renal function is worsening Objective - Vital Signs Vital signs: Vital Signs - 12hr 08/20/18 08/20/18 08/20/18 04:00 04:12 08:00 Temperature 97.5 F L 97.5 F L Pulse Rate 62 66 Respiratory Rate Blood Pressure 126/86 Blood Pressure 126/86 [Right] O2 Sat by Pulse 96 Oximetry 08/20/18 08/20/18 08/20/18 08:04 09:19 10:32 Temperature 97.5 F L Pulse Rate 67 69 Respiratory 18 17 Rate Blood Pressure 128/81 134/86 Blood Pressure [Right] O2 Sat by Pulse 97 Oximetry 08/20/18 08/20/18 10:33 13:46 Temperature Pulse Rate 69 Respiratory 19 Rate Blood Pressure 134/86 Blood Pressure [Right] O2 Sat by Pulse Oximetry - General Appearance General appearance: well-developed, well-nourished EENT: ATNC, PERRL, mucous membranes moist Neck: no JVD, JVD Respiratory: Present: Clear to Ascultation Cardiology: regular, S1S2 Gastrointestinal: normal, normoactive bowel sounds Integumentary: no rash Neurologic: no focal deficit, alert and oriented x3, CN 3-12 intact Psychiatric: mood/affect appropriate - Lab 08/20/18 04:54 08/20/18 13:10 Most recent lab results Calcium 7.9 mg/dL (8.4-10.2) L 08/20/18 13:10 Magnesium 1.90 mg/dL (1.7-2.3) 08/18/18 05:13 Urine Creatinine 276.7 mg/dL (0.1-20.0) H 08/18/18 Unknown Urine Sodium 36 mmol/L 08/18/18 Unknown Urine Total Protein 266 mg/dL (5-11.8) H 08/18/18 Unknown - Imaging Chest x-ray: other (chest x-ray reviewed clear lung lewis) Kidney/bladder ultrasound: other (ultrasound reviewed. No obvious hydronephrosis) Medications & Allergies - Medications Allergies/Adverse Reactions: Allergies No Known Allergies Allergy (Verified 08/17/18 01:16) Home Medications: Home Medications Medication Instructions Recorded Confirmed Last Taken Type Amiodarone 200 mg PO DAILY 08/17/18 08/17/18 Unknown History Carvedilol 3.125 mg PO BID 08/17/18 08/17/18 Unknown History Eliquis 2.5 mg PO BID 08/17/18 08/17/18 Unknown History ISOSORBIDE MONOnitrate 120 mg PO DAILY 08/17/18 08/17/18 Unknown History hydrALAZINE 50 mg PO TID 08/17/18 08/17/18 Unknown History Active Medications: Generic Name Dose Route Start Last Admin Trade Name Freq PRN Reason Stop Dose Admin Acetaminophen 650 mg 08/17/18 01:11 08/20/18 13:46 Tylenol PO 650 mg Q4H PRN Administration Pain MILD(1-3)/Fever >100.5/SHAH Acetaminophen/Hydrocodone Bitart 1 each 08/17/18 01:11 08/17/18 18:31 [place] 5/325 PO 1 each Q6H PRN Administration Pain, Moderate (4-6) Albuterol 2.5 mg 08/17/18 04:14 Proventil IH Q4HRT PRN Shortness Of Breath Amiodarone HCl 200 mg 08/19/18 11:00 08/20/18 10:30 Cordarone PO 200 mg QDAY HEATHER Administration Amlodipine Besylate 10 mg 08/17/18 01:17 08/20/18 10:32 Norvasc PO 10 mg QDAY HEATHER Administration Carvedilol 12.5 mg 08/17/18 02:00 08/20/18 10:33 Coreg PO 12.5 mg BID HEATHER Administration Docusate Sodium 100 mg 08/17/18 10:00 08/20/18 10:31 Colace PO 100 mg BID HEATHER Administration Heparin Sodium (Porcine) 5,000 unit 08/18/18 14:00 08/20/18 10:30 Heparin SUB-Q 5,000 unit Q12HR HEATHER Administration Hydralazine HCl 20 mg 08/17/18 01:19 Apresoline IV Q4HR PRN Blood Pressure Hydralazine HCl 25 mg 08/18/18 22:00 08/20/18 10:32 Apresoline PO 25 mg Q12HR HEATHER Administration Ceftriaxone Sodium 2 gm in 100 mls @ 200 mls/hr 08/17/18 02:00 08/19/18 21:41 Rocephin/Ns 2 Gm/100 Ml IV 200 mls/hr Q24HR@2200 HEATHER Administration Protocol Azithromycin 500 mg/ Sodium 250 mls @ 250 mls/hr 08/17/18 10:00 08/20/18 10:30 Chloride IV 250 mls/hr Q24HR HEATHER Administration Sodium Bicarbonate 150 meq/ 1,150 mls @ 75 mls/hr 08/20/18 13:00 08/20/18 13:48 Dextrose IV 75 mls/hr DIRECT HEATHER Administration Ondansetron HCl 4 mg 08/17/18 01:11 Zofran IV Q8H PRN Nausea And Vomiting Sodium Chloride 10 ml 08/17/18 10:00 08/20/18 10:34 Sodium Chloride Flush Syringe 10 Ml IV Not Given BID HEATHER Sodium Chloride 10 ml 08/17/18 01:11 Sodium Chloride Flush Syringe 10 Ml IV PRN PRN LINE FLUSH
[2018-08-20 20:47] LABS: Bilirubin,Urine NEG (Negative); Blood,Urine NEG (Negative); Color,Urine Yellow (Yellow); Hyaline Casts,Urine 1 /LPF; Urobilinogen,Urine < 2.0 mg/dL (<2.0)
[2018-08-20] MEDS: ROCEPHIN/NS 2 GM/100 ML 2 GM/100 ML BAG IV SCH (21:41)
[2018-08-21 05:02] LABS: Calcium 8.3 mg/dL (8.4-10.2)
[2018-08-21] MEDS: SODIUM BICARBONATE 150 MEQ in D5W 1,000 ML IV SCH (06:22)
[2018-08-21] MEDS: NORVASC PO SCH (09:31)
[2018-08-21] MEDS: COREG PO SCH ×2 (09:31→22:18)
[2018-08-21] MEDS: APRESOLINE PO SCH ×2 (09:31→22:19)
[2018-08-21] MEDS: HEPARIN SUB-Q SCH ×2 (09:32→22:19)
[2018-08-21] MEDS: SODIUM CHLORIDE FLUSH SYRINGE 10 ML IV SCH ×2 (09:32→22:19)
[2018-08-21] MEDS: COLACE PO SCH ×2 (09:32→22:18)
[2018-08-21] MEDS: CORDARONE PO SCH (09:32)
[2018-08-21] MEDS: ZITHROMAX 500 MG in NACL 0.9% 250ML 250 ML IV SCH (09:37)
--- NOTE | 2018-08-21 10:20 | Progress Note ---
Assessment and Plan Impression * Acute on chronic renal failure * COPD * Chronic atrial fibrillation * Hypertension * Proteinuria Recommendations * Patient's renal function appears to be stabilizing * He is also currently nonoliguric * Urine protein creatinine ratio is approximately 1 g/g * Renal ultrasound does show increased echogenicity bilaterally * Hepatitis B and C both are negative * Check vasculitis workup * Continue bicarbonate drip for now * No indication for renal replacement therapy at this time Subjective Date of service: 08/21/18 Principal diagnosis: ARF Interval history: Patient is comfortable today. Denies any shortness of breath. No nausea or vomiting. Objective - Vital Signs Vital signs: Vital Signs - 12hr 08/20/18 08/21/18 08/21/18 23:27 00:00 04:14 Temperature 98.1 F 98.3 F Pulse Rate 65 69 66 Respiratory 15 13 Rate Blood Pressure 114/71 118/69 O2 Sat by Pulse 98 95 Oximetry 08/21/18 08/21/18 08:52 08:54 Temperature 98.4 F Pulse Rate 76 Respiratory 18 Rate Blood Pressure 136/86 O2 Sat by Pulse 97 Oximetry - General Appearance General appearance: well-developed, well-nourished, appears stated age EENT: PERRL, mucous membranes moist Neck: no JVD, no thyromegaly, no carotid bruit, supple Respiratory: Present: Clear to Ascultation Cardiology: regular, normal heart rate, S1S2, no murmurs Gastrointestinal: normal, normoactive bowel sounds Integumentary: no rash, other (no edema) - Lab 08/20/18 04:54 08/21/18 04:00 Most recent lab results Calcium 8.3 mg/dL (8.4-10.2) L 08/21/18 04:00 Magnesium 1.90 mg/dL (1.7-2.3) 08/18/18 05:13 Urine Creatinine 276.7 mg/dL (0.1-20.0) H 08/18/18 Unknown Urine Sodium 36 mmol/L 08/18/18 Unknown Urine Total Protein 266 mg/dL (5-11.8) H 08/18/18 Unknown Medications & Allergies - Medications Allergies/Adverse Reactions: Allergies No Known Allergies Allergy (Verified 08/17/18 01:16) Home Medications: Home Medications Medication Instructions Recorded Confirmed Last Taken Type Amiodarone 200 mg PO DAILY 08/17/18 08/17/18 Unknown History Carvedilol 3.125 mg PO BID 08/17/18 08/17/18 Unknown History Eliquis 2.5 mg PO BID 08/17/18 08/17/18 Unknown History ISOSORBIDE MONOnitrate 120 mg PO DAILY 08/17/18 08/17/18 Unknown History hydrALAZINE 50 mg PO TID 08/17/18 08/17/18 Unknown History Active Medications: Generic Name Dose Route Start Last Admin Trade Name Freq PRN Reason Stop Dose Admin Acetaminophen 650 mg 08/17/18 01:11 08/20/18 13:46 Tylenol PO 650 mg Q4H PRN Administration Pain MILD(1-3)/Fever >100.5/SHAH Acetaminophen/Hydrocodone Bitart 1 each 08/17/18 01:11 08/17/18 18:31 [place] 5/325 PO 1 each Q6H PRN Administration Pain, Moderate (4-6) Albuterol 2.5 mg 08/17/18 04:14 Proventil IH Q4HRT PRN Shortness Of Breath Amiodarone HCl 200 mg 08/19/18 11:00 08/21/18 09:32 Cordarone PO 200 mg QDAY HEATHER Administration Amlodipine Besylate 10 mg 08/17/18 01:17 08/21/18 09:31 Norvasc PO 10 mg QDAY HEATHER Administration Carvedilol 12.5 mg 08/17/18 02:00 08/21/18 09:31 Coreg PO 12.5 mg BID HEATHER Administration Docusate Sodium 100 mg 08/17/18 10:00 08/21/18 09:32 Colace PO 100 mg BID HEATHER Administration Heparin Sodium (Porcine) 5,000 unit 08/18/18 14:00 08/21/18 09:32 Heparin SUB-Q 5,000 unit Q12HR HEATHER Administration Hydralazine HCl 20 mg 08/17/18 01:19 Apresoline IV Q4HR PRN Blood Pressure Hydralazine HCl 25 mg 08/18/18 22:00 08/21/18 09:31 Apresoline PO 25 mg Q12HR HEATHER Administration Ceftriaxone Sodium 2 gm in 100 mls @ 200 mls/hr 08/17/18 02:00 08/20/18 21:41 Rocephin/Ns 2 Gm/100 Ml IV 200 mls/hr Q24HR@2200 HEATHER Administration Protocol Azithromycin 500 mg/ Sodium 250 mls @ 250 mls/hr 08/17/18 10:00 08/21/18 09:37 Chloride IV 250 mls/hr Q24HR HEATHER Administration Sodium Bicarbonate 150 meq/ 1,150 mls @ 75 mls/hr 08/20/18 13:00 08/21/18 06:22 Dextrose IV 75 mls/hr DIRECT HEATHER Administration Ondansetron HCl 4 mg 08/17/18 01:11 Zofran IV Q8H PRN Nausea And Vomiting Sodium Chloride 10 ml 08/17/18 10:00 08/21/18 09:32 Sodium Chloride Flush Syringe 10 Ml IV 10 ml BID HEATHER Administration Sodium Chloride 10 ml 08/17/18 01:11 Sodium Chloride Flush Syringe 10 Ml IV PRN PRN LINE FLUSH
--- NOTE | 2018-08-21 13:10 | Progress Note ---
Assessment and Plan - Patient Problems (1) Chronic systolic CHF (congestive heart failure) Current Visit: Yes Status: Acute Plan to address problem: Continue medical therapy, further ischemic evaluation has been previously deferred to the outpatient setting. Subjective Date of service: 08/21/18 Principal diagnosis: ARF Interval history: Patient is comfortable, no acute distress. No new cardiac complaints. Objective Vital Signs Temp Pulse Resp BP Pulse Ox 08/21/18 11:53 68 18 99/67 99 08/21/18 11:52 98.1 F 08/21/18 08:54 98.4 F 08/21/18 08:52 76 18 136/86 97 08/21/18 04:14 98.3 F 66 13 118/69 95 08/21/18 00:00 69 08/20/18 23:27 98.1 F 65 15 114/71 98 08/20/18 21:41 70 135/90 08/20/18 21:40 70 135/90 08/20/18 19:44 97.2 F L 69 16 135/90 94 08/20/18 16:49 66 114/76 95 08/20/18 13:46 19 - Physical Examination General: No Apparent Distress HEENT: Positive: PERRL Neck: Positive: trachea midline Cardiac: Positive: Reg Rate and Rhythm Lungs: Positive: Decreased Breath Sounds Neuro: Positive: Grossly Intact Abdomen: Positive: Soft Skin: Positive: Clear Extremities: Absent: edema - Labs and Meds Comprehensive Metabolic Panel 08/20/18 08/21/18 Range/Units 13:10 04:00 Sodium 133 L 136 L (137-145) mmol/L Potassium 4.6 4.3 (3.6-5.0) mmol/L Chloride 102.3 101.7 (98-107) mmol/L Carbon Dioxide 20 L 18 L (22-30) mmol/L BUN 32 H 32 H (9-20) mg/dL Creatinine 2.9 H 2.7 H (0.8-1.5) mg/dL Glucose 115 H 103 H (75-100) mg/dL Calcium 7.9 L 8.3 L (8.4-10.2) mg/dL
--- NOTE | 2018-08-21 17:36 | Progress Note ---
Assessment and Plan - Patient Problems (1) Cardiomyopathy Current Visit: Yes Status: Acute Plan to address problem: Exact etiology of cardiomyopathy unknown. Could be autoimmune. Thyroid workup negative HIV negative. Appreciate cardiology evaluation. The extension of ischemic workup can be done on outpatient basis. (2) Acute kidney failure Current Visit: Yes Status: Acute Plan to address problem: Total function appears to be stabilizing now. Renal function appears to be stabilizing now. She did have some proteinuria. Vasculitis workup pending. Renal following. (3) Chronic systolic CHF (congestive heart failure) Current Visit: Yes Status: Acute Plan to address problem: Continue current diuresis. Patient is improving with Lasix supportive care afterload reduction. Ejection fraction 20% patient currently on beta yuliet Coreg. continue amlodipine secondary to patient's renal function not a candidate for sal at this time. History Interval history: At present patient states he feels better. Improved with diuresis. Hospitalist Physical - Constitutional Vitals: Temp Pulse Resp BP Pulse Ox 98.2 F 74 18 114/71 98 08/21/18 17:11 08/21/18 17:09 08/21/18 17:09 08/21/18 17:09 08/21/18 17:09 General appearance: Present: no acute distress - EENT Eyes: Present: PERRL, EOM intact ENT: hearing intact, clear oral mucosa, dentition normal - Neck Neck: Present: supple, normal ROM - Respiratory Respiratory: bilateral: rhonchi - Cardiovascular Rhythm: regular Heart Sounds: Present: S1 & S2, systolic murmur - Extremities Extremities: no ischemia, pulses intact, pulses symmetrical, normal temperature, normal color, Full ROM Extremity abnormal: edema Peripheral Pulses: within normal limits - Abdominal General gastrointestinal: soft, non-tender, non-distended, normal bowel sounds, no hepatomegaly, no splenomegaly, no mass - Integumentary Integumentary: Present: clear, warm, dry - Psychiatric Psychiatric: appropriate mood/affect, intact judgment & insight - Neurologic Neurologic: CNII-XII intact, moves all extremities Results - Labs CBC & Chem 7: 08/20/18 04:54 08/21/18 04:00 Labs: Laboratory Last Values WBC 4.4 K/mm3 (4.5-11.0) L 08/20/18 04:54 RBC 4.07 M/mm3 (3.65-5.03) 08/20/18 04:54 Hgb 10.2 gm/dl (11.8-15.2) L 08/20/18 04:54 Hct 31.4 % (35.5-45.6) L 08/20/18 04:54 MCV 77 fl (84-94) L 08/20/18 04:54 MCH 25 pg (28-32) L 08/20/18 04:54 MCHC 32 % (32-34) 08/20/18 04:54 RDW 23.1 % (13.2-15.2) H 08/20/18 04:54 Plt Count 241 K/mm3 (140-440) 08/20/18 04:54 Lymph % (Auto) 36.4 % (13.4-35.0) H 08/20/18 04:54 [place] % (Auto) 7.9 % (0.0-7.3) H 08/20/18 04:54 Eos % (Auto) 1.8 % (0.0-4.3) 08/20/18 04:54 Baso % (Auto) 0.7 % (0.0-1.8) 08/20/18 04:54 Lymph # 1.6 K/mm3 (1.2-5.4) 08/20/18 04:54 [place] # 0.3 K/mm3 (0.0-0.8) 08/20/18 04:54 Eos # 0.1 K/mm3 (0.0-0.4) 08/20/18 04:54 Baso # 0.0 K/mm3 (0.0-0.1) 08/20/18 04:54 Seg Neutrophils % 53.2 % (40.0-70.0) 08/20/18 04:54 Seg Neutrophils # 2.4 K/mm3 (1.8-7.7) 08/20/18 04:54 PT 14.5 Sec. (12.2-14.9) 08/16/18 20:12 INR 1.06 (0.87-1.13) 08/16/18 20:12 APTT 27.1 Sec. (24.2-36.6) 08/16/18 20:12 Sodium 136 mmol/L (137-145) L 08/21/18 04:00 Potassium 4.3 mmol/L (3.6-5.0) 08/21/18 04:00 Chloride 101.7 mmol/L (98-107) 08/21/18 04:00 Carbon Dioxide 18 mmol/L (22-30) L 08/21/18 04:00 Anion Gap 21 mmol/L 08/21/18 04:00 BUN 32 mg/dL (9-20) H 08/21/18 04:00 Creatinine 2.7 mg/dL (0.8-1.5) H 08/21/18 04:00 Estimated GFR 29 ml/min 08/21/18 04:00 BUN/Creatinine Ratio 12 % 08/21/18 04:00 Glucose 103 mg/dL (75-100) H 08/21/18 04:00 Osmolality 300 Mosm/kg 08/18/18 16:47 Uric Acid 8.8 mg/dL (3.5-7.6) H 08/18/18 16:47 Calcium 8.3 mg/dL (8.4-10.2) L 08/21/18 04:00 Magnesium 1.90 mg/dL (1.7-2.3) 08/18/18 05:13 Total Bilirubin 0.40 mg/dL (0.1-1.2) 08/18/18 05:13 Direct Bilirubin < 0.2 mg/dL (0-0.2) 08/18/18 05:13 Indirect Bilirubin 0.2 mg/dL 08/18/18 05:13 AST 14 units/L (5-40) 08/18/18 05:13 ALT 9 units/L (7-56) 08/18/18 05:13 Alkaline Phosphatase 87 units/L (35-129) 08/18/18 05:13 Troponin T < 0.010 ng/mL (0.00-0.029) 08/17/18 04:53 NT-Pro-B Natriuret Pep 4951 pg/mL (0-900) H 08/20/18 04:54 Total Protein 6.9 g/dL (6.3-8.2) 08/18/18 05:13 Albumin 2.8 g/dL (3.9-5) L 08/18/18 05:13 Albumin/Globulin Ratio 0.7 % 08/18/18 05:13 Urine Color Yellow (Yellow) 08/20/18 Unknown Urine Turbidity Clear (Clear) 08/20/18 Unknown Urine pH 5.0 (5.0-7.0) 08/20/18 Unknown Ur Specific [place] 1.016 (1.003-1.030) 08/20/18 Unknown Urine Protein 100 mg/dl mg/dL (Negative) 08/20/18 Unknown Urine Glucose (UA) Neg mg/dL (Negative) 08/20/18 Unknown Urine Ketones Neg mg/dL (Negative) 08/20/18 Unknown Urine Blood Neg (Negative) 08/20/18 Unknown Urine Nitrite Neg (Negative) 08/20/18 Unknown Urine Bilirubin Neg (Negative) 08/20/18 Unknown Urine Urobilinogen < 2.0 mg/dL (<2.0) 08/20/18 Unknown Ur Leukocyte Esterase Neg (Negative) 08/20/18 Unknown Urine WBC (Auto) 1.0 /HPF (0.0-6.0) 08/20/18 Unknown Urine RBC (Auto) 5.0 /HPF (0.0-6.0) 08/20/18 Unknown Hyaline Casts 1 /LPF 08/20/18 Unknown Urine Mucus Few /HPF 08/17/18 02:32 Urine Creatinine 276.7 mg/dL (0.1-20.0) H 08/18/18 Unknown Urine Sodium 36 mmol/L 08/18/18 Unknown Urine Total Protein 266 mg/dL (5-11.8) H 08/18/18 Unknown Hep Bs Antigen Non-reactive (Negative) 08/20/18 16:02 Hepatitis C Antibody Non-reactive (NonReactive) 08/20/18 16:03 - Imaging and Cardiology Chest x-ray: image reviewed Active Medications - Current Medications Current Medications: Generic Name Dose Route Start Last Admin Trade Name Freq PRN Reason Stop Dose Admin Acetaminophen 650 mg 08/17/18 01:11 08/20/18 13:46 Tylenol PO 650 mg Q4H PRN Administration Pain MILD(1-3)/Fever >100.5/SHAH Acetaminophen/Hydrocodone Bitart 1 each 08/17/18 01:11 08/17/18 18:31 [place] 5/325 PO 1 each Q6H PRN Administration Pain, Moderate (4-6) Albuterol 2.5 mg 08/17/18 04:14 Proventil IH Q4HRT PRN Shortness Of Breath Amiodarone HCl 200 mg 08/19/18 11:00 08/21/18 09:32 Cordarone PO 200 mg QDAY HEATHER Administration Amlodipine Besylate 10 mg 08/17/18 01:17 08/21/18 09:31 Norvasc PO 10 mg QDAY HEATHER Administration Carvedilol 12.5 mg 08/17/18 02:00 08/21/18 09:31 Coreg PO 12.5 mg BID HEATHER Administration Docusate Sodium 100 mg 08/17/18 10:00 08/21/18 09:32 Colace PO 100 mg BID HEATHER Administration Heparin Sodium (Porcine) 5,000 unit 08/18/18 14:00 08/21/18 09:32 Heparin SUB-Q 5,000 unit Q12HR HEATHER Administration Hydralazine HCl 20 mg 08/17/18 01:19 Apresoline IV Q4HR PRN Blood Pressure Hydralazine HCl 25 mg 08/18/18 22:00 08/21/18 09:31 Apresoline PO 25 mg Q12HR HEATHER Administration Ceftriaxone Sodium 2 gm in 100 mls @ 200 mls/hr 08/17/18 02:00 08/20/18 21:41 Rocephin/Ns 2 Gm/100 Ml IV 200 mls/hr Q24HR@2200 HEATHER Administration Protocol Azithromycin 500 mg/ Sodium 250 mls @ 250 mls/hr 08/17/18 10:00 08/21/18 09:37 Chloride IV 250 mls/hr Q24HR HEATHER Administration Sodium Bicarbonate 150 meq/ 1,150 mls @ 75 mls/hr 08/20/18 13:00 08/21/18 06:22 Dextrose IV 75 mls/hr DIRECT HEATHER Administration Ondansetron HCl 4 mg 08/17/18 01:11 Zofran IV Q8H PRN Nausea And Vomiting Sodium Chloride 10 ml 08/17/18 10:00 08/21/18 09:32 Sodium Chloride Flush Syringe 10 Ml IV 10 ml BID HEATHER Administration Sodium Chloride 10 ml 08/17/18 01:11 Sodium Chloride Flush Syringe 10 Ml IV PRN PRN LINE FLUSH
[2018-08-21] MEDS: NORCO 5/325 PO PRN (22:00)
[2018-08-21] MEDS: ROCEPHIN/NS 2 GM/100 ML 2 GM/100 ML BAG IV SCH (22:19)
[2018-08-22 07:25] LABS: Calcium 8.2 mg/dL (8.4-10.2)
--- NOTE | 2018-08-22 09:26 | Progress Note ---
Assessment and Plan Impression * Acute on chronic renal failure * COPD * Chronic atrial fibrillation * Hypertension * Proteinuria Recommendations * Patient's renal function is slowly improving * He is also currently nonoliguric * Urine protein creatinine ratio is approximately 1 g/g * Renal ultrasound does show increased echogenicity bilaterally * Hepatitis B and C both are negative * Follow up results of vasculitis workup * Acidosis has been corrected. Replace bicarbonate drip with oral sodium bicarbonate * No indication for renal replacement therapy at this time Subjective Date of service: 08/22/18 Principal diagnosis: ARF Interval history: Patient is comfortable today. Denies any shortness of breath. No nausea or vomiting. Objective - Vital Signs Vital signs: Vital Signs - 12hr 08/21/18 08/21/18 08/21/18 22:18 22:19 22:53 Temperature 98.4 F Pulse Rate 72 72 68 Respiratory 17 Rate Blood Pressure 104/89 140/89 118/69 O2 Sat by Pulse 93 Oximetry 08/21/18 08/22/18 08/22/18 23:00 00:00 02:50 Temperature Pulse Rate 73 69 Respiratory 18 14 Rate Blood Pressure 128/67 O2 Sat by Pulse 95 Oximetry 08/22/18 08/22/18 03:23 09:15 Temperature 97.8 F 98.3 F Pulse Rate 73 Respiratory 18 Rate Blood Pressure 139/78 O2 Sat by Pulse 95 Oximetry - General Appearance General appearance: well-developed, well-nourished, appears stated age EENT: PERRL, mucous membranes moist Neck: no JVD, no thyromegaly, no carotid bruit, supple Respiratory: Present: Clear to Ascultation Cardiology: regular, normal heart rate Gastrointestinal: normal, normoactive bowel sounds Integumentary: other (no edema) - Lab 08/20/18 04:54 08/22/18 07:27 Most recent lab results Calcium 8.2 mg/dL (8.4-10.2) L 08/22/18 07:27 Magnesium 1.90 mg/dL (1.7-2.3) 08/18/18 05:13 276.7 mg/dL (0.1-20.0) H 08/18/18 Unknown 36 mmol/L 08/18/18 Unknown 266 mg/dL (5-11.8) H 08/18/18 Unknown Medications & Allergies - Medications Allergies/Adverse Reactions: Allergies No Known Allergies Allergy (Verified 08/17/18 01:16) Home Medications: Home Medications Medication Instructions Recorded Confirmed Last Taken Type Amiodarone 200 mg PO DAILY 08/17/18 08/17/18 Unknown History Carvedilol 3.125 mg PO BID 08/17/18 08/17/18 Unknown History Eliquis 2.5 mg PO BID 08/17/18 08/17/18 Unknown History ISOSORBIDE MONOnitrate 120 mg PO DAILY 08/17/18 08/17/18 Unknown History hydrALAZINE 50 mg PO TID 08/17/18 08/17/18 Unknown History Active Medications: Generic Name Dose Route Start Last Admin Trade Name Freq PRN Reason Stop Dose Admin Acetaminophen 650 mg 08/17/18 01:11 08/20/18 13:46 Tylenol PO 650 mg Q4H PRN Administration Pain MILD(1-3)/Fever >100.5/SHAH Acetaminophen/Hydrocodone Bitart 1 each 08/17/18 01:11 08/21/18 22:00 [place] 5/325 PO 1 each Q6H PRN Administration Pain, Moderate (4-6) Albuterol 2.5 mg 08/17/18 04:14 Proventil IH Q4HRT PRN Shortness Of Breath Amiodarone HCl 200 mg 08/19/18 11:00 08/21/18 09:32 Cordarone PO 200 mg QDAY HEATHER Administration Amlodipine Besylate 10 mg 08/17/18 01:17 08/21/18 09:31 Norvasc PO 10 mg QDAY HEATHER Administration Carvedilol 12.5 mg 08/17/18 02:00 08/21/18 22:18 Coreg PO 12.5 mg BID HEATHER Administration Docusate Sodium 100 mg 08/17/18 10:00 08/21/18 22:18 Colace PO 100 mg BID HEATHER Administration Heparin Sodium (Porcine) 5,000 unit 08/18/18 14:00 08/21/18 22:19 Heparin SUB-Q 5,000 unit Q12HR HEATHER Administration Hydralazine HCl 20 mg 08/17/18 01:19 Apresoline IV Q4HR PRN Blood Pressure Hydralazine HCl 25 mg 08/18/18 22:00 08/21/18 22:19 Apresoline PO 25 mg Q12HR HEATHER Administration Ceftriaxone Sodium 2 gm in 100 mls @ 200 mls/hr 08/17/18 02:00 08/21/18 22:19 Rocephin/Ns 2 Gm/100 Ml IV 200 mls/hr Q24HR@2200 HEATHER Administration Protocol Azithromycin 500 mg/ Sodium 250 mls @ 250 mls/hr 08/17/18 10:00 08/21/18 09:37 Chloride IV 250 mls/hr Q24HR HEATHER Administration Sodium Bicarbonate 150 meq/ 1,150 mls @ 75 mls/hr 08/20/18 13:00 08/21/18 06:22 Dextrose IV 75 mls/hr DIRECT HEATHER Administration Ondansetron HCl 4 mg 08/17/18 01:11 Zofran IV Q8H PRN Nausea And Vomiting Sodium Chloride 10 ml 08/17/18 10:00 08/21/18 22:19 Sodium Chloride Flush Syringe 10 Ml IV 10 ml BID HEATHER Administration Sodium Chloride 10 ml 08/17/18 01:11 Sodium Chloride Flush Syringe 10 Ml IV PRN PRN LINE FLUSH
[2018-08-22] MEDS: NORVASC PO SCH (09:34)
[2018-08-22] MEDS: COLACE PO SCH ×2 (09:34→21:54)
[2018-08-22] MEDS: COREG PO SCH ×2 (09:34→21:54)
[2018-08-22] MEDS: HEPARIN SUB-Q SCH ×2 (09:35→21:54)
[2018-08-22] MEDS: APRESOLINE PO SCH ×2 (09:35→21:54)
[2018-08-22] MEDS: SODIUM CHLORIDE FLUSH SYRINGE 10 ML IV SCH ×2 (09:36→22:20)
[2018-08-22] MEDS: CORDARONE PO SCH (09:38)
--- NOTE | 2018-08-22 10:53 | Progress Note ---
Assessment and Plan Assessment and plan: Acute on chronic systolic heart failure. Resolving. Cardiology following. Hold diuretics per cardiology for now. Acute kidney injury. Baseline creatinine unknown, current creatinine is 2.5 mg/DL Renal ultrasound echogenic kidneys non-obstructing stones without hydronephrosis Patient also with proteinuria. Nephrology following and obtained serologies to exclude other possibilities Cardiomyopathy. TSH and free T4 are normal. HIV normal.? Ischemic versus nonischemic. Outpatient ischemic cardiac evaluation will be scheduled upon discharge per cardiology. Etiology may be tachycardia mediated versus EtOH. ESTELLA and Sjogren positive. Paroxysmal non-valvular atrial flutter. Patient is status post ablation. Valvular heart disease. Moderate MR and moderate TR. Pulmonary hypertension. Chronic kidney disease. IV Lasix has been held. COPD. Left lower lobe pneumonia. Continue IV Rocephin and Zithromycin Full code status History Interval history: No SOB cuurrently No chest pain Hospitalist Physical - Physical exam Narrative exam: Gen: Not in acute distress, lying in bed HEENT: Normocephalic, atraumatic Neck: supple, no JVD Heart: S1 and S2 reg, no murmurs, rubs or gallop Lungs: Clear, no crackles Abd: soft, non tender, non distended, normal BS Ext: No edema, no clubbing, no cyanosis, Neuro: Awake,alert, moves all ext - Constitutional Vitals: Temp Pulse Resp BP Pulse Ox 98.3 F 73 18 139/78 95 08/22/18 09:15 08/22/18 09:15 08/22/18 09:15 08/22/18 09:15 08/22/18 09:15 General appearance: Present: no acute distress Results - Labs CBC & Chem 7: 08/20/18 04:54 08/22/18 07:27 Labs: Laboratory Last Values WBC 4.4 K/mm3 (4.5-11.0) L 08/20/18 04:54 RBC 4.07 M/mm3 (3.65-5.03) 08/20/18 04:54 Hgb 10.2 gm/dl (11.8-15.2) L 08/20/18 04:54 Hct 31.4 % (35.5-45.6) L 08/20/18 04:54 MCV 77 fl (84-94) L 08/20/18 04:54 MCH 25 pg (28-32) L 08/20/18 04:54 MCHC 32 % (32-34) 08/20/18 04:54 RDW 23.1 % (13.2-15.2) H 08/20/18 04:54 Plt Count 241 K/mm3 (140-440) 08/20/18 04:54 Lymph % (Auto) 36.4 % (13.4-35.0) H 08/20/18 04:54 [place] % (Auto) 7.9 % (0.0-7.3) H 08/20/18 04:54 Eos % (Auto) 1.8 % (0.0-4.3) 08/20/18 04:54 Baso % (Auto) 0.7 % (0.0-1.8) 08/20/18 04:54 Lymph # 1.6 K/mm3 (1.2-5.4) 08/20/18 04:54 [place] # 0.3 K/mm3 (0.0-0.8) 08/20/18 04:54 Eos # 0.1 K/mm3 (0.0-0.4) 08/20/18 04:54 Baso # 0.0 K/mm3 (0.0-0.1) 08/20/18 04:54 Seg Neutrophils % 53.2 % (40.0-70.0) 08/20/18 04:54 Seg Neutrophils # 2.4 K/mm3 (1.8-7.7) 08/20/18 04:54 PT 14.5 Sec. (12.2-14.9) 08/16/18 20:12 INR 1.06 (0.87-1.13) 08/16/18 20:12 APTT 27.1 Sec. (24.2-36.6) 08/16/18 20:12 Sodium 137 mmol/L (137-145) 08/22/18 07:27 Potassium 4.0 mmol/L (3.6-5.0) 08/22/18 07:27 Chloride 100.0 mmol/L (98-107) 08/22/18 07:27 Carbon Dioxide 26 mmol/L (22-30) D 08/22/18 07:27 15 mmol/L 08/22/18 07:27 BUN 25 mg/dL (9-20) H 08/22/18 07:27 2.5 mg/dL (0.8-1.5) H 08/22/18 07:27 Estimated GFR 32 ml/min 08/22/18 07:27 10 % 08/22/18 07:27 Glucose 95 mg/dL (75-100) 08/22/18 07:27 300 Mosm/kg 08/18/18 16:47 8.8 mg/dL (3.5-7.6) H 08/18/18 16:47 Calcium 8.2 mg/dL (8.4-10.2) L 08/22/18 07:27 Magnesium 1.90 mg/dL (1.7-2.3) 08/18/18 05:13 0.40 mg/dL (0.1-1.2) 08/18/18 05:13 < 0.2 mg/dL (0-0.2) 08/18/18 05:13 0.2 mg/dL 08/18/18 05:13 AST 14 units/L (5-40) 08/18/18 05:13 ALT 9 units/L (7-56) 08/18/18 05:13 87 units/L (35-129) 08/18/18 05:13 < 0.010 ng/mL (0.00-0.029) 08/17/18 04:53 NT-Pro-B Natriuret Pep 4951 pg/mL (0-900) H 08/20/18 04:54 6.9 g/dL (6.3-8.2) 08/18/18 05:13 2.8 g/dL (3.9-5) L 08/18/18 05:13 0.7 % 08/18/18 05:13 Yellow (Yellow) 08/20/18 Unknown Clear (Clear) 08/20/18 Unknown 5.0 (5.0-7.0) 08/20/18 Unknown Ur Specific [place] 1.016 (1.003-1.030) 08/20/18 Unknown 100 mg/dl mg/dL (Negative) 08/20/18 Unknown Neg mg/dL (Negative) 08/20/18 Unknown Neg mg/dL (Negative) 08/20/18 Unknown Neg (Negative) 08/20/18 Unknown Neg (Negative) 08/20/18 Unknown Neg (Negative) 08/20/18 Unknown < 2.0 mg/dL (<2.0) 08/20/18 Unknown Ur Leukocyte Esterase Neg (Negative) 08/20/18 Unknown 1.0 /HPF (0.0-6.0) 08/20/18 Unknown 5.0 /HPF (0.0-6.0) 08/20/18 Unknown Hyaline Casts 1 /LPF 08/20/18 Unknown Few /HPF 08/17/18 02:32 276.7 mg/dL (0.1-20.0) H 08/18/18 Unknown 36 mmol/L 08/18/18 Unknown 266 mg/dL (5-11.8) H 08/18/18 Unknown Hep Bs Antigen Non-reactive (Negative) 08/20/18 16:02 Non-reactive (NonReactive) 08/20/18 16:03 Active Medications - Current Medications Current Medications: Generic Name Dose Route Start Last Admin Trade Name Freq PRN Reason Stop Dose Admin Acetaminophen 650 mg 08/17/18 01:11 08/20/18 13:46 Tylenol PO 650 mg Q4H PRN Administration Pain MILD(1-3)/Fever >100.5/SHAH Acetaminophen/Hydrocodone Bitart 1 each 08/17/18 01:11 08/21/18 22:00 [place] 5/325 PO 1 each Q6H PRN Administration Pain, Moderate (4-6) Albuterol 2.5 mg 08/17/18 04:14 Proventil IH Q4HRT PRN Shortness Of Breath Amiodarone HCl 200 mg 08/19/18 11:00 08/22/18 09:38 Cordarone PO 200 mg QDAY HEATHER Administration Amlodipine Besylate 10 mg 08/17/18 01:17 08/22/18 09:34 Norvasc PO 10 mg QDAY HEATHER Administration Carvedilol 12.5 mg 08/17/18 02:00 08/22/18 09:34 Coreg PO 12.5 mg BID HEATHER Administration Docusate Sodium 100 mg 08/17/18 10:00 08/22/18 09:34 Colace PO 100 mg BID HEATHER Administration Heparin Sodium (Porcine) 5,000 unit 08/18/18 14:00 08/22/18 09:35 Heparin SUB-Q 5,000 unit Q12HR HEATHER Administration Hydralazine HCl 20 mg 08/17/18 01:19 Apresoline IV Q4HR PRN Blood Pressure Hydralazine HCl 25 mg 08/18/18 22:00 08/22/18 09:35 Apresoline PO 25 mg Q12HR HEATHER Administration Ceftriaxone Sodium 2 gm in 100 mls @ 200 mls/hr 08/17/18 02:00 08/21/18 22:19 Rocephin/Ns 2 Gm/100 Ml IV 200 mls/hr Q24HR@2200 HEATHER Administration Protocol Azithromycin 500 mg/ Sodium 250 mls @ 250 mls/hr 08/17/18 10:00 08/21/18 09:37 Chloride IV 250 mls/hr Q24HR HEATHER Administration Ondansetron HCl 4 mg 08/17/18 01:11 Zofran IV Q8H PRN Nausea And Vomiting Sodium Bicarbonate 650 mg 08/22/18 14:00 Sodium Bicarbonate PO TID HEATHER Sodium Chloride 10 ml 08/17/18 10:00 08/22/18 09:36 Sodium Chloride Flush Syringe 10 Ml IV 10 ml BID HEATHER Administration Sodium Chloride 10 ml 08/17/18 01:11 Sodium Chloride Flush Syringe 10 Ml IV PRN PRN LINE FLUSH
--- NOTE | 2018-08-22 11:57 | Progress Note ---
Assessment and Plan Pneumonia Pleural effusion Chronic systolic heart failure EF 20-25% by echo this admission Hx of Paroxysmal Aflutter s/p ablation 10/2017 previously recommended for low dose eliquis therapy patient was supposed to have a cardiac PET as outpatient in [place]. Chronic renal failure COPD Recommendations: Continue medical management for chronic systolic heart failure. Outpatient ischemic cardiac evaluation as originally planned will be rescheduled upon discharge. Subjective Date of service: 08/22/18 Principal diagnosis: ARF Interval history: Patient has no complaints. No distress noted. Objective Vital Signs Temp Pulse Resp BP Pulse Ox 08/22/18 09:15 98.3 F 73 18 139/78 95 08/22/18 03:23 97.8 F 08/22/18 02:50 69 14 128/67 95 08/22/18 00:00 73 08/21/18 23:00 18 08/21/18 22:53 98.4 F 68 17 118/69 93 08/21/18 22:19 72 140/89 08/21/18 22:18 72 104/89 08/21/18 19:45 98.3 F 72 15 140/89 97 08/21/18 17:11 98.2 F 08/21/18 17:09 74 18 114/71 98 - Physical Examination General: No Apparent Distress HEENT: Positive: PERRL Neck: Positive: trachea midline Cardiac: Positive: Reg Rate and Rhythm Lungs: Positive: Decreased Breath Sounds Neuro: Positive: Grossly Intact Extremities: Absent: edema - Labs and Meds Comprehensive Metabolic Panel 08/22/18 Range/Units 07:27 Sodium 137 (137-145) mmol/L Potassium 4.0 (3.6-5.0) mmol/L Chloride 100.0 (98-107) mmol/L Carbon Dioxide 26 D (22-30) mmol/L BUN 25 H (9-20) mg/dL Creatinine 2.5 H (0.8-1.5) mg/dL Glucose 95 (75-100) mg/dL Calcium 8.2 L (8.4-10.2) mg/dL
[2018-08-22] MEDS: ZITHROMAX 500 MG in NACL 0.9% 250ML 250 ML IV SCH (12:08)
[2018-08-22] MEDS: SODIUM BICARBONATE PO SCH ×2 (18:06→21:54)
[2018-08-22] MEDS: ROCEPHIN/NS 2 GM/100 ML 2 GM/100 ML BAG IV SCH (21:57)
[2018-08-23 05:56] LABS: Calcium 8.1 mg/dL (8.4-10.2)
[2018-08-23] MEDS: APRESOLINE PO SCH (10:00)
[2018-08-23] MEDS: CORDARONE PO SCH (10:10)
[2018-08-23] MEDS: COLACE PO SCH (10:10)
[2018-08-23] MEDS: SODIUM BICARBONATE PO SCH ×2 (10:10→16:23)
[2018-08-23] MEDS: COREG PO SCH (10:10)
[2018-08-23] MEDS: HEPARIN SUB-Q SCH (10:11)
[2018-08-23] MEDS: NORVASC PO SCH (10:11)
[2018-08-23] MEDS: SODIUM CHLORIDE FLUSH SYRINGE 10 ML IV SCH (10:12)
--- NOTE | 2018-08-23 11:34 | Progress Note ---
Assessment and Plan Pneumonia Pleural effusion Chronic systolic heart failure EF 20-25% by echo this admission Hx of Paroxysmal Aflutter s/p ablation 10/2017 previously recommended for low dose eliquis therapy patient was supposed to have a cardiac PET as outpatient in [place]. Chronic renal failure COPD Recommendations: Continue medical management for chronic systolic heart failure. Outpatient ischemic cardiac evaluation as originally planned will be rescheduled upon discharge. Subjective Date of service: 08/23/18 Principal diagnosis: ARF Interval history: Short burst of NSVT on telemetry this morning. Patient remained asymptomatic and has no complaints. Objective Vital Signs Temp Pulse Resp BP Pulse Ox 08/23/18 04:19 98.5 F 70 20 132/76 100 08/23/18 00:41 98.2 F 63 20 111/59 94 08/22/18 20:05 72 08/22/18 19:46 98.3 F 73 20 128/79 94 08/22/18 12:20 67 111/64 95 - Physical Examination General: No Apparent Distress HEENT: Positive: PERRL Neck: Positive: trachea midline Cardiac: Positive: Reg Rate and Rhythm Lungs: Positive: Decreased Breath Sounds Neuro: Positive: Grossly Intact Abdomen: Positive: Soft Extremities: Absent: edema - Labs and Meds Comprehensive Metabolic Panel 08/23/18 Range/Units 05:10 Sodium 137 (137-145) mmol/L Potassium 3.9 (3.6-5.0) mmol/L Chloride 102.1 (98-107) mmol/L Carbon Dioxide 25 (22-30) mmol/L BUN 22 H (9-20) mg/dL Creatinine 2.4 H (0.8-1.5) mg/dL Glucose 87 (75-100) mg/dL Calcium 8.1 L (8.4-10.2) mg/dL
--- NOTE | 2018-08-23 11:48 | Progress Note ---
Assessment and Plan Impression * Acute on chronic renal failure * COPD * Chronic atrial fibrillation * Hypertension * Proteinuria Recommendations * Patient's renal function is slowly improving * He is also currently nonoliguric * Baseline renal function is not known. His serum creatinine was 1.9 on admission. * Urine protein creatinine ratio is approximately 1 g/g * Renal ultrasound does show increased echogenicity bilaterally * Hepatitis B and C both are negative * Follow up results of vasculitis workup * Acidosis has been corrected. Continue oral sodium bicarbonate * IV fluids was discontinued yesterday * No indication for renal replacement therapy at this time * No objection to discharge from renal standpoint. He will need close outpatient renal follow-up Subjective Date of service: 08/23/18 Principal diagnosis: ARF Interval history: Patient is comfortable today. Denies any shortness of breath. No nausea or vomiting. Objective - Vital Signs Vital signs: Vital Signs - 12hr 08/23/18 08/23/18 00:41 04:19 Temperature 98.2 F 98.5 F Pulse Rate 63 70 Respiratory 20 20 Rate Blood Pressure 111/59 132/76 O2 Sat by Pulse 94 100 Oximetry - General Appearance General appearance: well-developed, well-nourished, appears stated age EENT: PERRL, mucous membranes moist Neck: no JVD, no thyromegaly, no carotid bruit, supple Respiratory: Present: Clear to Ascultation Cardiology: regular, normal heart rate, S1S2, no murmurs Gastrointestinal: normal, normoactive bowel sounds Integumentary: no rash, other (no edema) - Lab 08/20/18 04:54 08/23/18 05:10 Most recent lab results Calcium 8.1 mg/dL (8.4-10.2) L 08/23/18 05:10 Phosphorus 4.30 mg/dL (2.5-4.5) 08/23/18 05:10 Magnesium 2.00 mg/dL (1.7-2.3) 08/23/18 05:10 276.7 mg/dL (0.1-20.0) H 08/18/18 Unknown 36 mmol/L 08/18/18 Unknown 266 mg/dL (5-11.8) H 08/18/18 Unknown Medications & Allergies - Medications Allergies/Adverse Reactions: Allergies No Known Allergies Allergy (Verified 08/17/18 01:16) Home Medications: Home Medications Medication Instructions Recorded Confirmed Last Taken Type Amiodarone 200 mg PO DAILY 08/17/18 08/17/18 Unknown History Carvedilol 3.125 mg PO BID 08/17/18 08/17/18 Unknown History Eliquis 2.5 mg PO BID 08/17/18 08/17/18 Unknown History ISOSORBIDE MONOnitrate 120 mg PO DAILY 08/17/18 08/17/18 Unknown History hydrALAZINE 50 mg PO TID 08/17/18 08/17/18 Unknown History Active Medications: Generic Name Dose Route Start Last Admin Trade Name Freq PRN Reason Stop Dose Admin Acetaminophen 650 mg 08/17/18 01:11 08/20/18 13:46 Tylenol PO 650 mg Q4H PRN Administration Pain MILD(1-3)/Fever >100.5/SHAH Acetaminophen/Hydrocodone Bitart 1 each 08/17/18 01:11 08/21/18 22:00 [place] 5/325 PO 1 each Q6H PRN Administration Pain, Moderate (4-6) Albuterol 2.5 mg 08/17/18 04:14 Proventil IH Q4HRT PRN Shortness Of Breath Amiodarone HCl 200 mg 08/19/18 11:00 08/23/18 10:10 Cordarone PO 200 mg QDAY HEATHER Administration Amlodipine Besylate 10 mg 08/17/18 01:17 08/23/18 10:11 Norvasc PO 10 mg QDAY HEATHER Administration Carvedilol 12.5 mg 08/17/18 02:00 08/23/18 10:10 Coreg PO 12.5 mg BID HEATHER Administration Docusate Sodium 100 mg 08/17/18 10:00 08/23/18 10:10 Colace PO 100 mg BID HEATHER Administration Heparin Sodium (Porcine) 5,000 unit 08/18/18 14:00 08/23/18 10:11 Heparin SUB-Q 5,000 unit Q12HR HEATHER Administration Hydralazine HCl 20 mg 08/17/18 01:19 Apresoline IV Q4HR PRN Blood Pressure Hydralazine HCl 25 mg 08/18/18 22:00 08/22/18 21:54 Apresoline PO 25 mg Q12HR HEATHER Administration Ceftriaxone Sodium 2 gm in 100 mls @ 200 mls/hr 08/17/18 02:00 08/22/18 21:57 Rocephin/Ns 2 Gm/100 Ml IV 200 mls/hr Q24HR@2200 HEATHER Administration Protocol Ondansetron HCl 4 mg 08/17/18 01:11 Zofran IV Q8H PRN Nausea And Vomiting Sodium Bicarbonate 650 mg 08/22/18 14:00 08/23/18 10:10 Sodium Bicarbonate PO 650 mg TID HEATHER Administration Sodium Chloride 10 ml 08/17/18 10:00 08/23/18 10:12 Sodium Chloride Flush Syringe 10 Ml IV 10 ml BID HEATHER Administration Sodium Chloride 10 ml 08/17/18 01:11 Sodium Chloride Flush Syringe 10 Ml IV PRN PRN LINE FLUSH
[2018-08-23 12:36] VITALS: BP 117/71
--- NOTE | 2018-08-23 13:50 | Discharge Summary ---
Providers - Providers Date of Admission: 08/17/18 01:11 Date of discharge: 08/23/18 Attending physician: ZEINAB MCCARTHY 08/17/18 14:17 Consult to Physician [CONS] Routine Comment: Consulting Provider: KEYON LOTT Physician Instructions: Reason For Exam: chf, severe DCM, severe valve disorder 08/18/18 12:24 Consult to Physician [CONS] Routine Comment: Consulting Provider: YONI ROSS Physician Instructions: Reason For Exam: ARF [facility] Hospital course: Patient is a 62 year old -Stateless male with history of COPD and CHF who presented with shortness of breath, cough, chest pain to the Emergency Department. He was seen and examined in ED. Labs show Cr 1.9. Chest X ray revealed left lower lobe pneumonia and bilat pleural effusion. He was diagnosed with CHF exacerbation, acute on CKD, pneumonia. He was started on Lasix, Rocephin, Zithromax. Patient was evaluated by cardiology and Nephrology. Creatinine became worse so Lasix discontinued. symptomatically he felt better, shortness of breth resolved. However Creatinine remained elevated but stable at 2.4 so was discharged home to follow as outptient. Total time spent on discharge, 32 mins Disposition: DC- TO HOME OR SELFCARE - Discharge Diagnoses (1) Acute kidney failure Status: Acute (2) Cardiomyopathy Status: Acute (3) Proteinuria Status: Acute (4) ATN (acute tubular necrosis) Status: Acute (5) Acute on chronic systolic (congestive) heart failure Status: Acute (6) [id number] kidney injury Status: Acute (7) PAF (paroxysmal atrial fibrillation) Status: Acute (8) PAF (paroxysmal atrial fibrillation) Status: Acute (9) Pneumonia Status: Acute (10) Pulmonary hypertension Status: Acute (11) COPD (chronic obstructive pulmonary disease) Status: Acute Core Measure Documentation - Palliative Care Palliative Care/ Comfort Measures: Not Applicable - Core Measures Any of the following diagnoses?: heart failure, none - Heart Failure Discharge Requirements SANA/ARB for LVSD if EF <40%: No Reason for no SANA/ARB: Renal impairment Beta yuliet at discharge: Yes Exam - Constitutional Vitals: Temp Pulse Resp BP Pulse Ox 98.5 F 65 20 117/71 94 08/23/18 04:19 08/23/18 12:36 08/23/18 04:19 08/23/18 12:36 08/23/18 12:36 Plan Activity: no restrictions Diet: low fat, low cholesterol, low salt, renal Additional Instructions: 1.Follow up with PCP or [place] [facility] in 1 week. 2.Follow up with Dr. Varela in 1 week. 3.Follow up with [facility] in 1 week. Follow up with: AUBRIE YANG MD [Primary Care Provider] - 3-5 Days Prescriptions: hydrALAZINE [Apresoline TAB] 25 mg PO Q12HR #60 tablet Carvedilol [Coreg] 12.5 mg PO BID #60 tablet
[2018-08-24 18:24] LABS: Myeloperoxidase Antibody <1.0 AI (<1.0)
[2018-08-25 12:21] LABS: ANA Screen, IFA Negative (Negative)
== END 2018-08-23 18:47 | disposition home or self-care (01) | DRG 682 ==
LOC: ED 19:42 → 4A 08-17 01:11
PROVIDERS: ADMIT Internal Medicine; ATTEND Internal Medicine
DX: N17.0 Acute kidney failure with tubular necrosis (principal); I50.23 Acute on chronic systolic (congestive) heart failure; J18.1 Lobar pneumonia, unspecified organism; I13.0 Hypertensive heart and chronic kidney disease with heart failure and stage 1 through stage 4 chronic kidney disease, or unspecified chronic kidney disease; J44.0 Chronic obstructive pulmonary disease with (acute) lower respiratory infection; E87.1 Hypo-osmolality and hyponatremia; I48.92 Unspecified atrial flutter; I42.9 Cardiomyopathy, unspecified; I08.1 Rheumatic disorders of both mitral and tricuspid valves; I27.20 Pulmonary hypertension, unspecified; I48.2 Chronic atrial fibrillation; N18.3 Chronic kidney disease, stage 3 (moderate); I16.0 Hypertensive urgency; Z91.19 Patient's noncompliance with other medical treatment and regimen; Z87.891 Personal history of nicotine dependence; Z79.899 Other long term (current) drug therapy; I25.2 Old myocardial infarction
CPT/HCPCS: 36415; 71046; 76770; 80048; 80076; 81001; 82570; 83735; 83880; 83930; 84100; 84156; 84300; 84484; 84550; 85025; 85027; 85610; 85730; 86021; 86038; 86225; 86235; 86334; 86706; 86803; 87040; 93005; 93010; 93306; 96374; 96375; 99291; G0378; J0456; J0696; J1644; J1940; J2405; J7030; J7050; J7070